=== PATIENT | female | born 1990 | race Caucasian/White ===

== ENCOUNTER 2017-01-03 17:52 | Inpatient (IN) | payer OTHER ==
--- NOTE | ~2017-01-03 | FU ---
[facility] Therapy DATE: 02/04/17 Patient: JESSE OLIVO Physician: MORCAR Address: [address] [place] [address] ROAD Room/Bed: [address] [place] [address], Zip: [place] [address] Admit Date: 01/03/17 Date of : [birth year] Height: 5 1 Weight: 122 55.4 NUTRITION MONITORING/FOLLOW-UP: Reason: PT SEEN FOR FOLLOW-UP DX: (L) BUTTOCK ABSCESS, SEPSIS Anthropometrics: 5'1", WT: 122# (55 KG), BMI: 23.0 -WEIGHTS HAVE RANGED 118-138# SINCE ADMIT Labs: WNL Meds: ZOFRAN, KCL, OS-ANAT 500+D I&O's: 2980/902 Skin: PREVIOUSLY NOTED Assessment: CHART REVIEWED AND EVENTS NOTED. PT SEEN FOR FOLLOW-UP. PT SLEEPY/LETHARGIC AT TIME OF VISIT REPORTING GOOD PO INTAKE AND APPETITE, NO C/O N/V/D. PT ADDS THAT SHE LIKES THE MAGIC CUP DAILY AT DINNER. PT REPORTED NO DIET QUESTIONS AT THIS TIME. RD TO REMAIN AVAILABLE. Dx: ADEQUATE ORAL INTAKE R/T GOOD APPETITE AND PO INTAKE AEB PT REPORT ABOVE-ACTIVE. Intervention: 1. REGULAR DIET 2. VANILLA MAGIC CUP W/DINNER MEAL Monitoring, Evaluation and Goals: 1. ORAL INTAKE; CONSUME >80% MEALS AND SUPPLEMENTS-MET 2. SKIN; PROMOTE SKIN HEALING-IN PROGRESS NEW GOAL: 1. WEIGHT; PROMOTE WEIGHT MAINTENANCE MONITOR: -PO INTAKE/APPETITE -SUPPLEMENT INTAKE -WEIGHTS Recommendations: 1. NONE AT THIS TIME RD WILL F/U PER PROTOCOL. PT AT NO NUTRITION RISK [facility] DATE: 02/04/17 Patient: JESSE OLIVO Physician: JOAQUIN Address: [address] [place] [address] ROAD Room/Bed: [address] [place] [address], Zip: [place] [address] Admit Date: 01/03/17 Date of : [birth year] Height: 5 1 Weight: 122 55.4 Respectfully, SUKHDEV DYER MS, RD, LD [facility] cc: client file
--- NOTE | ~2017-01-03 | CO ---
Unit #: [id number] #: [id number] Patient: JESSE OLIVO [id number] [address] [place], [place] [address] [id number] I MR#: [id number] NAME: JESSE OLIVO ROOM: [facility] Age: 26 Sex: F Admission Date: 01/03/2017 : 1990 Attending Physician: Cinthia Christensen M.D. Primary Care Physician: No Primary Care Physician CONSULTATION REPORT REASON FOR CONSULTATION Renal failure, hyponatremia. HISTORY OF PRESENT ILLNESS A 26-year-old female with significant past medical history of hepatitis C, hepatitis B, polysubstance drug abuse, also has history of IV heroin abuse and methamphetamine. She mainly came to the ER complaining of high fever, not feeling well, found to have an abscess in her buttock area that was also in her pelvic area too. Patient also found to have significantly high white cell count of 37,000 and hemoglobin of 10.9. The patient was started on normal saline. No repeat labs done since then. The patient is still extremely confused, not doing good and unable to get any detailed history from the patient. 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 HOME MEDICATIONS Patient not taking any home medication. SOCIAL HISTORY The patient is a smoker, takes drugs. FAMILY HISTORY Noncontributory. REVIEW OF SYSTEMS Noncontributory. PHYSICAL EXAMINATION GENERAL APPEARANCE: The patient is a middle-aged female not in any acute distress. VITAL SIGNS: Last blood pressure is 117/61. Pulse 106. Temperature 97.4. HEAD AND NECK: Pupils are reactive to light. Extraocular movements intact. Mucous membrane is moist. Neck is supple. CHEST: Patient has bilateral air entry with no wheeze, no crackle. HEART: Regular rate and rhythm. There may be a mild murmur. ABDOMEN: Distended with some tenderness on deep palpation. EXTREMITIES: No clubbing, cyanosis and edema. SKIN: Multiple needle ashford for the skin and also has multiple abrasions on the face and other parts of the body. Unit #: [id number] #: [id number] Patient: JESSE OLIVO DIAGNOSTIC STUDIES LABORATORY: BNP level 119. White cell count 37,000, hemoglobin 10, hematocrit 0.9, sodium 116. ASSESSMENT AND PLAN 1. Hyponatremia. Cause of hyponatremia multifactorial. At this time, likely may be having some SIADH issue because of multiple drug abuse. A 3% saline will be started. Repeat labs should be done STAT as the patient was on normal saline. Repeat labs later today. 2. Pelvic abscess. 3. Bacteremia. 4. Some proteinuria. Need to check complement level to rule out infectious (1) . 5. Multiple drug abuse. DISCUSSION At this time, patient seems to be septic with increased white cell count, pelvic abscess, hyponatremia, needs multiple labs, close observation, will be transferred to ICU and repeat labs will be done later today and STAT at this time. Follow up with a CPK level to rule out any rhabdomyolysis because of the presence of significant hematuria. Significant blood in the urine without having significant RBCs. Thank you for letting me evaluate and taking care of this patient. Dictated by... Sylvia Hardy TD: 01/06/2017 06:35 JOB #: [id number] CONSULTATION REPORT Page 1 of 1 X Lavell Conway MD X CONSULTATION REPORT
--- NOTE | ~2017-01-03 | OR ---
Unit #: [id number] #: [id number] Patient: JESSE OLIVO [id number] [address] [address] [id number] I MR#: [id number] NAME: JESSE OLIVO ROOM: 549 Date of Procedure: 01/08/2017 Admission Date: 01/03/2017 Surgeon: Nils Perez M.D. : 1990 Attending Physician: Cinthia Christensen M.D. OPERATIVE REPORT PREOPERATIVE DIAGNOSES 1. Abscess, right forearm. 2. Abscess, dorsal lateral aspect right foot. POSTOPERATIVE DIAGNOSES 1. Abscess, right forearm. 2. Abscess, dorsal lateral aspect right foot. PROCEDURE PERFORMED 1. Incision and drainage of abscess, right forearm. 2. Incision and drainage of dorsal lateral aspect right foot. ANESTHESIA General LMA anesthesia with 0.5% Marcaine plain local anesthesia. FINDINGS Each abscess was incised and drained. SPECIMENS None. COMPLICATIONS None apparent. CONDITION The patient tolerated the procedure well. INDICATIONS FOR PROCEDURE The patient is a 26-year-old female, who presents at this time with multiple abscesses. She now has an area of erythema and induration of the extensor surface of right forearm as well as the dorsal lateral aspect of right foot. Ultrasound was performed, which revealed area suspicious for an abscess in each location. She presents at this time for incision and drainage. DESCRIPTION OF PROCEDURE After obtaining informed consent as well as receiving scheduled antibiotics, the patient was brought to the operating room and after adequate general LMA anesthesia was obtained, had a right forearm and right foot prepped and draped in a sterile fashion. An incision was made over the erythematous indurated area of the right forearm and the large Unit #: [id number] #: [id number] Patient: JESSE OLIVO abscess cavity was entered. All loculations were broken up and the cavity was irrigated out. Hemostasis was obtained with the Bovie. The area was infiltrated with 0.5% Marcaine plain local anesthesia and packed with saline soaked fluff. A dry dressing was applied followed by a Kerlix wrap. At this point in time, attention was turned to the right foot. An incision was made over the area of erythema and induration. A small cavity was entered and evacuated. All loculations were broken up. The wound was irrigated. Hemostasis was obtained with the Bovie, infiltrated with 0.5% Marcaine plain local anesthesia and packed with saline soaked fluffs. Dry dressings were applied followed by a Kerlix wrap. Needle counts, sponge counts, and instrument counts were all correct as reported by the scrub nurse x2. The patient went from the operative room to recovery room in stable condition. Dictated by... Sylvia Whiteside/марина TD: 01/09/2017 02:43 JOB #: [id number] CC: Bruce Guerrero M.D. [facility] OPERATIVE REPORT Page 1 of 1 X Nils Perez MD X PROCEDURE OPERATIVE NOTE
--- NOTE | ~2017-01-03 | CO ---
Unit #: [id number] #: [id number] Patient: JESSE OLIVO [id number] [address] [address] [id number] I MR#: [id number] NAME: JESSE OLIVO ROOM: 549 Age: 26 Sex: F Admission Date: 01/03/2017 : 1990 Attending Physician: Kevin Barrera M.D. Primary Care Physician: Primary Care Physician No Consultation Date: 01/14/2017 CONSULTATION REPORT CHIEF COMPLAINT Right shoulder pain. HISTORY OF PRESENT ILLNESS Jesse is a 26-year-old female with a history of injection IV drug use and MRSA endocarditis. She now has multiple areas of septic emboli including multiple subcutaneous abscesses and an even empyema. She now has shoulder pain and an MRI consistent with possible septic bursitis. She is complaining of pain in her right shoulder which has been present throughout her hospitalization despite treatment with IV antibiotics. She states it is painful with any attempted range of motion or lifting of the arm off the bed. She described the area is feeling tight. There is slight overlying erythema. PAST MEDICAL HISTORY 1. Polysubstance abuse including heroin, marijuana, and methamphetamine. 2. Hepatitis C. 3. Hepatitis B. 4. HPV. PAST SURGICAL HISTORY I and D of left antecubital fossa abscess. MEDICATIONS No home medications. ALLERGIES No known drug allergies. SOCIAL HISTORY The patient smokes one pack of cigarettes daily. She denies any alcohol use. She injects IV drugs including heroin daily. FAMILY HISTORY Noncontributory to the current illness. REVIEW OF SYSTEMS Negative except as noted in the HPI. PHYSICAL EXAMINATION GENERAL APPEARANCE: Appears older than stated age, but in no acute distress. PSYCHIATRIC: Awake, alert, and oriented appropriately. Unit #: [id number] #: [id number] Patient: JESSE OLIVO CARDIAC: Regular rate and rhythm. PULMONARY: No increased work of breathing. Symmetric chest rise. ABDOMEN: Soft. Nondistended. NEUROLOGIC: Intact axillary, musculocutaneous, median, ulnar, radial nerve function. SKIN: There were multiple areas of open wounds following debridement. She has one overlying in the right forearm. The right shoulder demonstrates mild erythema. There is some soft tissue swelling present. MUSCULOSKELETAL: She is tender over the subacromial bursa. She has forward elevation and abduction of approximately 70 degrees. She has pain with passive range of motion of the shoulder. DIAGNOSTIC STUDIES IMAGING STUDIES: MRI is reviewed of the right shoulder. There was an area of inflammation in the subacromial bursa. There is edema and stranding in the cuff musculature. Overall findings are concerning for septic bursitis. IMPRESSION Right shoulder septic bursitis. PLAN Her MRI is somewhat inconclusive. However, combined with her history and clinical exam, overall this is concerning for septic bursitis of the right subacromial space. Given her widespread septic emboli, an arthroscopic debridement is indicated. We also plan for aspiration of the glenohumeral joint as well to ensure that there was no evidence of any septic arthritis of the joint space itself. I suspect this will be negative. We discussed the nature of the surgery including risks, benefits, alternatives, and she elected to proceed. Dictated by... Gino Finley M.D. CANDY/марина TD: 01/18/2017 04:05 JOB #: [id number] CONSULTATION REPORT Page 1 of 1 X Gino Finley MD CONSULTATION REPORT
--- NOTE | ~2017-01-03 | CO ---
Unit #: [id number] #: [id number] Patient: JESSE OLIVO [id number] [facility] [address] [facility]. [place], [place] [address] [id number] I MR#: [id number] NAME: JESSE OLIVO ROOM: 549 Age: 26 Sex: F Admission Date: 01/03/2017 : 1990 Attending Physician: Cinthia Christensen M.D. Primary Care Physician: Primary Care Physician No Consultation Date: 01/07/2017 CONSULTATION REPORT REASON FOR CONSULTATION Followup. DISCUSSION Ms. Jesse Olivo is a 26-year-old female, seen in room 549, bed 1 on 01/07/2017 at [facility]. The patient transferred out of ICU, pleasant, cooperative. The patient's family member was at the bedside. The patient reported having a lot of problem with the anxiety, nervousness, unable to sleep last night. Current medications are not working. The patient denied any suicidal or homicidal ideation. Denied any psychotic symptom. Vital signs; temperature 97.9, pulse 118, respiratory rate 18, blood pressure 124/85, and oxygen saturation 98%. REVIEW OF SYSTEMS Complete review of systems unremarkable except as mentioned above. MENTAL STATUS EXAMINATION Vital signs, please see above. General appearance; the patient dressed in hospital attire. Attention span and concentration, fair. Speech, rapid in rate. Oriented in place and person. Mood and affect, labile. Thought process, circumstantial. Thought content, the patient denied any thoughts of harming self or others, but guarded. Recent and remote memory, fair. Language, intact. Fund of knowledge, fair to slightly impaired. Insight and judgment, fair to slightly impaired. DIAGNOSES Psychiatric: Opioid use disorder, severe, F11.20; major depressive disorder, recurrent, severe, F33.2. ASSESSMENT/PLAN 1. Supportive psychotherapy and psychoeducation provided to the patient. 2. Educated about benefits and side effects of medication and course and prognosis of illness. 3. Recommending at this time to increase trazodone to 100 mg at bedtime, increase Zyprexa to 10 mg at bedtime, Vistaril to 50 mg t.i.d. Continue with the other medications same. We will closely monitor. Advised to hold medication if the patient is too sedated. We will continue to follow. Follow please feel free to call if any question, telephone #[phone]. Dictated by... Fam Medina M.D. Unit #: [id number] #: [id number] Patient: JESSE OLIVO MICAH/modl TD: 01/07/2017 22:44 JOB #: [id number] CONSULTATION REPORT Page 1 of 1 X Fam Medina MD X CONSULTATION REPORT
--- NOTE | ~2017-01-03 | CO ---
Unit #: [id number] #: [id number] Patient: JESSE OLIVO [id number] [address] [place], [place] [address] [id number] I MR#: [id number] NAME: JESSE OLIVO ROOM: 325 Age: 26 Sex: F Admission Date: 01/03/2017 : 1990 Attending Physician: Kevin Barrera M.D. Primary Care Physician: No Primary Care Physician Consultation Date: 01/04/2017 CONSULTATION REPORT REASON FOR CONSULTATION Buttock abscess. HISTORY OF PRESENT ILLNESS This is a 26-year-old female who has a history of polysubstance abuse who last used IV drugs a few days prior to admission. The patient reports that for the last several days she has had some wounds on her buttocks as well as her face and other area of her body. 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 She was in the hospital a few years ago for an antecubital fossa abscess. The patient now is admitted with fever, leukocytosis and was found to have a buttock abscess. The patient is admitted and is awaiting surgical evaluation as well. The patient has been placed on vancomycin and Zosyn. ID was asked to evaluate for further management. PAST MEDICAL HISTORY 1. Polysubstance abuse. 2. 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 3. Abscess I and D in the past. ALLERGIES No known allergies. MEDICATIONS The patient is currently on vancomycin x1 and Zosyn. For other medications, please refer to patient's MAR. SOCIAL HISTORY The patient has positive tobacco. She denies any alcohol. She does report heroin abuse. REVIEW OF SYSTEMS The patient does report some sweats and chills. She denies any shortness of breath, UTI signs or symptoms, nausea, vomiting, diarrhea. She reports multiple scabbed lesions all over her face. She also reports pain in her right foot with difficulty with ambulation. PHYSICAL EXAMINATION VITAL SIGNS: Temperature is 97s.4 with a T-max of 101.1, pulse is 106, blood pressure 117/61, respiratory rate 18. GENERAL: This is a no apparent distress female who is currently resting in the bed comfortably. However, she is lethargic and you have to awake her multiple times to have the patient complete a sentence. HEENT/NECK: Her pupils are equal. Her neck is supple. Unit #: [id number] #: [id number] Patient: JESSE OLIVO CARDIOVASCULAR: S1, S2. Regular rate and rhythm. PULMONARY: Clear to auscultation bilaterally with no wheezes or rhonchi noted. ABDOMEN: Positive bowel sounds. Soft and nontender. EXTREMITIES: Multiple scabbed lesions noted throughout her legs, her face and she also has some confluent erythema on her right foot with swelling. She has a buttock wound that is in a dressing that does show some cellulitis and slough. DIAGNOSTIC STUDIES LABORATORY: BUN 17, creatinine 0.9, sodium 116, potassium 4.1, chloride 82, CO2 23, bilirubin 1.6, AST 114, ALT 38, lactic acid 1.4. White blood cell count 37.5, hemoglobin 10.9, hematocrit 32.3, platelets 330. HIV in 2016 was negative. Tox screen shows positive amphetamines and opiates. Urinalysis shows WBC 25-50, positive nitrites, 1+ bacteria. Urine culture and blood cultures is pending. IMAGING: CT scan of the pelvis with contrast - please see full report for complete details. Consistent with abscess medial to the acetabulum and inferior pubic ramus down to the deep pelvis. Another similar fluid collection in the pelvis itself which is possible ovarian cyst or additional abscess. Chest x-ray - left lung is clear. Right atelectasis. Moderate size pleural effusion. IMPRESSION This is a 26-year-old female with polysubstance abuse that was admitted for buttock abscess. The patient does have a buttock abscess and surgery is to evaluate. A CT scan is also abnormal. The patient has fever and leukocytosis and may have additional issues including bacteremia and endocarditis is always a concern. 2D echo is currently pending. The patient also has right foot cellulitis and will need to evaluate patient for any septic arthritis or deep foot infection. Will continue vancomycin and Zosyn at this time. Will follow up blood culture results. Will ask the nursing staff to call if any positive blood cultures and give the patient a Hibiclens bath. Will also give Bacitracin to the open wounds on both her face and her scabbed lesions. The patient does not appear septic or toxic at this time but she is fairly lethargic most likely from recent IV drug abuse prior to admission. We will need to follow along with patient closely. Thank you for allowing us to participate in the care of this patient. Further recommendations to follow pending patient's clinical course. Dictated by... Adalgisa WillsPKhalidaRAbran for Sylvia Ellis/true Unit #: [id number] #: [id number] Patient: JESSE OLIVO TD: 01/04/2017 10:20 JOB #: [id number] CONSULTATION REPORT Page 1 of 1 X X CONSULTATION REPORT
--- NOTE | ~2017-01-03 | CO ---
Unit #: [id number] #: [id number] Patient: JESSE OLIVO [id number] [address] [address] [id number] I MR#: [id number] NAME: JESSE OLIVO ROOM: [facility] Age: 26 Sex: F Admission Date: 01/03/2017 : 1990 Attending Physician: Cinthia Christensen M.D. Primary Care Physician: Primary Care Physician No Consultation Date: 01/04/2017 CONSULTATION REPORT HISTORY OF PRESENT ILLNESS Ms. Olivo is a 26-year-old female with a history of polysubstance abuse who presents with a painful abscess in the left buttock. There has been some spontaneous drainage but there is a significant amount of necrotic and infected soft tissue with associated cellulitis. She also has multiple wounds all over her body from infection and scratching. She has the typical appearance of a meth addict. She will need surgical debridement of this left buttock abscess. Most of the other wounds do not need any surgical intervention as they are superficial and not associated with fluctuance. PAST MEDICAL HISTORY 1. I and D of previous left antecubital fossa abscess. 2. History of methamphetamine and heroin abuse. 3. 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 4. Hepatitis C and B. HOME MEDICATIONS No home medications. ALLERGIES None. SOCIAL HISTORY She has a long history of substance abuse. 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 FAMILY HISTORY She is unaware of any chronic or inheritable diseases. REVIEW OF SYSTEMS Noncontributory. PHYSICAL EXAMINATION VITAL SIGNS: Temperature 97.4, pulse 106, respirations 18, blood pressure 117/61. GENERAL: She is awake, alert, oriented. She is cooperative. SKIN: She has scars and open superficial wounds all over her face and lips, chest, abdominal wall, upper and lower extremities. There are none on her back. LEFT BUTTOCK: She has about a 3 x 2 cm open area with necrosis and some purulent discharge. There is associated cellulitis. NEUROLOGIC: She is grossly intact. Unit #: [id number] #: [id number] Patient: JESSE OLIVO DIAGNOSTIC STUDIES LABORATORY: BUN 17, creatinine 0.9, sodium 116, potassium 4.1, chloride 82, calcium 7.7, CO2 is 23, albumin 2.2, total bilirubin 1.6. Lactic acid 1.4. White count 37,500 with 90% neutrophils, hemoglobin 10.9, platelets 330,000. Hepatitis C antibody reactive. Tox screen is positive for amphetamines and opiates. Urinalysis nitrite positive, urinary tract infection. IMAGING: CT scan of the pelvis confirms the abscess. There is a thin-walled fluid collection in the pelvis, probably an ovarian cyst. Chest x-ray no acute findings. CARDIOVASCULAR: Echocardiogram is pending. ASSESSMENT AND PLAN This is a 26-year-old female with long history of methamphetamine and heroin abuse who presents with a large abscess with soft tissue necrosis of the left buttock. PLAN 1. She will need incision and drainage and surgical debridement. 2. She also has multiple other superficial wounds all over her body too numerous to count. 3. She has been seen by Infectious Disease and started on appropriate antibiotics. 4. 2D echo is pending to rule out endocarditis. 5. She is on Zosyn and vancomycin. 6. She also has urinary tract infection, culture pending. 7. Psychiatry has been consulted to see the patient. Dictated by... Mark Celaya M.D. JUSTO/cindi TD: 01/05/2017 22:06 JOB #: [id number] CONSULTATION REPORT Page 1 of 1 X Mark Celaya MD CONSULTATION REPORT
--- NOTE | ~2017-01-03 | CR72 ---
[facility] A Service of [facility] RADIOLOGY TEXT RESULTS PATIENT: JESSE OLIVO LOCATION: [facility] [id number] : [birth year] UNIT #: [id number] AGE: [address]: Kevin Barrera MD SEX: F ORDER DR: [id number] [facility] [address] [place], [place] [address] [id number] I MR#: [id number] Acc #: [id number] NAME: JESSE OLIVO : 1990 SEX: F STUDY DATE/TIME: 01/03/2017 19:16 UNIT: [facility] ROOM: [id number] STUDY DESCRIPTION: CR Chest Single View Portable Attending Physician: Kevin Barrera M.D. Ordering Physician: Niharika Cuello M.D. MEDICAL IMAGING REPORT This report is preliminary unless electronic signature is present EXAM Portable chest HISTORY Fever, chest and shortness of air for 4 days. FINDINGS Moderate-sized right pleural effusion with moderate right basilar probable atelectasis. Left lung is clear. Cardiac and mediastinal contours are normal. Remainder of lungs are clear. Dictated by... Tomas Hwang M.D. THIS IS AN ELECTRONICALLY VERIFIED REPORT Tomas Hwang M.D. at 01/03/2017 11:13 PM DFL/pcl TD: 01/03/2017 22:59 JOB #: [id number] MEDICAL IMAGING REPORT Page 1 of 1 COPY
--- NOTE | ~2017-01-03 | FU ---
[facility] Nutrition Therapy DATE: 01/23/17 Patient: JESSE OLIVO Physician: JOAQUIN Address: [address] [place] [address] ROAD Room/Bed: [address] [place] [address], Zip: [place] [address] Admit Date: 01/03/17 Date of : [birth year] Height: 5 1 Weight: 122 55.6 NUTRITION MONITORING/FOLLOW-UP: Reason: PT SEEN FOR FOLLOW-UP DX: (L) BUTTOCK ABSCESS, SEPSIS Anthropometrics: 5'1", WT: 122# (55 KG), BMI: 23.0 -WEIGHTS HAVE RANGED 118-138# SINCE ADMIT Labs: GLU: 141, ALB: 1.6 (ADMIT) Meds: ZOFRAN, 0S-ANAT 500+D, KCL I&O's: 1570/8, 1 BM NOTED Skin: (R) FOREARM ABSCESS, OTHER SKIN CONDITIONS NOTED PREVIOUSLY EDEMA: (R) SHOULDER TRACE EDEMA; BILATERAL FEET TRACE EDEMA; (R) ARM GENERAL EDEMA Assessment: CHART REVIEWED AND EVENTS NOTED. PT SEEN FOR FOLLOW-UP. PT EATING LUNCH AT TIME OF VISIT. PT REPORTS GOOD PO INTAKE AND APPETITE, NO C/O N/V/D. PT REPORTS CONSUMING MAGIC CUP DAILY W/DINNER. PT REPORTED NO DIET QUESTIONS AT THIS VISIT. RD TO REMAIN AVAILABLE. Dx: ADEQUATE ORAL INTAKE R/T GOOD APPETITE AND PO INTAKE AEB PT REPORT ABOVE.-ACTIVE Intervention: 1. REGULAR DIET 2. VANILLA MAGIC CUP W/DINNER Monitoring, Evaluation and Goals: 1. ORAL INTAKE; CONSUME/TOLERATE >50% OF MEALS AND SUPPLEMENTS-MET 2. SKIN; PREVENT SKIN BREAKDOWN; PROMOTE HEALING-IN PROGRESS MONITOR: -PO INTAKE/APPETITE -WEIGHTS -SUPPLEMENT INTAKE Recommendations: 1. ENCOURAGE PO INTAKE 2. CONSIDER ADDING MVI W/MINERAL DAILY TO PROMOTE SKIN HEALING RD WILL F/U PER PROTOCOL PT IS MILDLY COMPROMISED [facility] Nutrition Therapy DATE: 01/23/17 Patient: JESSE GEOVANI Physician: JOAQUIN Address: [address] [place] [address] ROAD Room/Bed: [address] [place] [address], Zip: [place] [address] Admit Date: 01/03/17 Date of : [birth year] Height: 5 1 Weight: 122 55.6 Respectfully, SUKHDEV DYER MS, RD, LD Food and Nutritional Services [facility] cc: client file
--- NOTE | ~2017-01-03 | US49 ---
[facility] A Service of [facility] & [facility] RADIOLOGY TEXT RESULTS PATIENT: JESSE OLIVO LOCATION: C5B 549-01 : [birth year] UNIT #: [id number] AGE: [address]: Cinthia Christensen MD SEX: F ORDER DR: [id number] [facility] [address] [facility] [place], [place] [address] [id number] I MR#: [id number] Acc #: [id number] NAME: JESSE OLIVO : 1990 SEX: F STUDY DATE/TIME: 01/08/2017 8:39 UNIT: [facility] ROOM: [facility] STUDY DESCRIPTION: US Extremity Non Vasc Complete Attending Physician: Cinthia Christensen M.D. Ordering Physician: Nils Perez M.D. Primary Care Physician: No Primary Care Physician MEDICAL IMAGING REPORT This report is preliminary unless electronic signature is present EXAM Ultrasound extremity, nonvascular, complete, 01/08/2017. HISTORY Left foot pain and swelling right AC fossa and right lateral forearm 5 days. Evaluate for abscess. TECHNIQUE Real-time ultrasonography of the right antecubital fossa and right forearm performed. FINDINGS The vascular structures of the right antecubital fossa are unremarkable. No abnormal fluid collection in the right antecubital fossa. Along the radial aspect of the forearm in area of palpable abnormality indicated by patient, there is a heterogeneous collection measuring 7.01 cm x 3.43 cm x 1.28 cm. It contains some areas of cystic or fluid appearance. There are areas of heterogeneous echogenic material. Color Doppler interrogation shows no indication of internal vascular flow. The appearance is nonspecific. In the appropriate clinical context, evolving abscess could be considered. Evolving hematoma could be considered. This structure may be amenable to image-guided fine-needle aspiration sampling if it would assist in management. IMPRESSION 1. No abnormality is seen in the antecubital fossa region. 2. Along the radial aspect of the right forearm in area of palpable abnormality indicated by patient, there is a heterogeneous collection. It measures 7 cm in length by 3.4 cm x 1.2 cm transversely. It does contain some cystic or fluid appearing components. It is largely of heterogeneous echogenic appearance. The appearance is nonspecific. In the appropriate clinical context, evolving abscess or hematoma could be considered. If it would assist STS. [facility] A Service of [facility] RADIOLOGY TEXT RESULTS PATIENT: JESSE OLIVO LOCATION: C5B 549-01 : [birth year] UNIT #: [id number] AGE: [address]: Cinthia Christensen MD SEX: F ORDER DR: in management, this area might be amenable to fine needle aspiration sampling. Dictated by... Omar Matos M.D. THIS IS AN ELECTRONICALLY VERIFIED REPORT Omar Matos M.D. at 01/09/2017 6:12 PM PATRICK/cait TD: 01/08/2017 09:51 JOB #: [id number] MEDICAL IMAGING REPORT Page 1 of 1 COPY
--- NOTE | ~2017-01-03 | CR72 ---
[facility] A Service of [facility] & [facility] RADIOLOGY TEXT RESULTS PATIENT: JESSE OLIVO LOCATION: [address] : [birth year] UNIT #: [id number] AGE: [address]: Cinthia Christensen MD SEX: F ORDER DR: [id number] [facility] [address] [facility]. [place], [place] [address] [id number] I MR#: [id number] Acc #: [id number] NAME: JESSE OLIVO : 1990 SEX: F STUDY DATE/TIME: 01/05/2017 4:31 UNIT: [facility] ROOM: [facility] STUDY DESCRIPTION: CR Chest Single View Portable Attending Physician: Cinthia Christensen M.D. Ordering Physician: Avani Manning M.D. Primary Care Physician: No Primary Care Physician MEDICAL IMAGING REPORT This report is preliminary unless electronic signature is present EXAM Single view portable chest, 01/05/17 HISTORY Follow up right chest tube. FINDINGS This portable view of the chest shows the right chest tube is in good position. There is no pneumothorax. There is minimal right lower lobe atelectasis. The left lung is clear. The central venous catheter has its tip in the right atrium. Dictated by... Sergio Juarez M.D. THIS IS AN ELECTRONICALLY VERIFIED REPORT Sergio Juarez M.D. at 01/05/2017 1:53 PM ANDRE/marielle TD: 01/05/2017 12:21 JOB #: [id number] MEDICAL IMAGING REPORT Page 1 of 1 COPY
--- NOTE | ~2017-01-03 | CO ---
Unit #: [id number] #: [id number] Patient: JESSE OLIVO [id number] [facility] [address] [place], [place] [address] [id number] I MR#: [id number] NAME: JESSE OLIVO ROOM: 549 Age: 26 Sex: F Admission Date: 01/03/2017 : 1990 Attending Physician: Cinthia Christensen M.D. Consultation Date: 01/08/2017 CONSULTATION REPORT DISCUSSION Ms. Jesse Olivo is a 26-year-old female, seen in room 549, bed 1 on 01/08/2017 at [facility]. The patient was lying comfortably in bed; reported still having problem with the anxiety, mood lability, sad, depressed, anxious, but denied any suicidal or homicidal ideation. Denied any psychotic symptom. The patient is compliant with medication. Vital signs; temperature 98.1, pulse 113, blood pressure 133/92, and oxygen saturation 98%. The patient was somewhat upset about decreasing the dosage of her Neurontin. The patient was explained and answered all her questions. The patient is currently taking Desyrel 100 mg at bedtime, Zyprexa 10 mg at bedtime, Vistaril 50 mg t.i.d., Requip 1 mg b.i.d., Neurontin 200 mg t.i.d. The patient has p.r.n. Neurontin also available. REVIEW OF SYSTEMS Complete review of systems unremarkable. MENTAL STATUS EXAMINATION General appearance; the patient dressed casually, lying comfortably in bed. Attention span and concentration, fair. Speech, regular rate and coherent. Oriented in time, place, and person. Mood and affect, labile. Thought process, coherent. Thought content, the patient denied any thoughts of harming self or others, but guarded. Recent and remote memory, fair. Language, intact. Fund of knowledge, fair to slightly impaired. DIAGNOSES 1. Opioid use disorder, severe, F11.20. 2. Major depressive disorder, recurrent, severe, F33.2. 3. Anxiety disorder, not otherwise specified, F40.01. ASSESSMENT/PLAN 1. Supportive psychotherapy and psychoeducation provided to the patient. 2. Educated about benefits and side effects of medication and course and prognosis of illness. 3. Advised to continue with current medication protocol. If needed, consider further adjustment of medication. We will continue to follow and make further adjustment of medication if needed. Dictated by... Sylvia Gilmore/марина Unit #: [id number] #: [id number] Patient: JESSE OLIVO TD: 01/08/2017 23:55 JOB #: [id number] CONSULTATION REPORT Page 1 of 1 X Fam Medina MD CONSULTATION REPORT
--- NOTE | ~2017-01-03 | CT93 ---
[facility] A Service of [facility] & [facility] RADIOLOGY TEXT RESULTS PATIENT: JESSE OLIVO LOCATION: [facility] 549-01 : [birth year] UNIT #: [id number] AGE: [address]: Cinthia Christensen MD SEX: F ORDER DR: [id number] [facility] [address]. [place], [place] [address] [id number] I MR#: [id number] Acc #: [id number] NAME: JESSE OLIVO : 1990 SEX: F STUDY DATE/TIME: 01/04/2017 18:53 UNIT: [facility] ROOM: [facility] STUDY DESCRIPTION: CT Lower Ext Rt W Cont Attending Physician: Cinthia Christensen M.D. Ordering Physician: Isidro Celaya M.D. Primary Care Physician: Primary Care Physician No MEDICAL IMAGING REPORT This report is preliminary unless electronic signature is present EXAM CT right lower extremity with contrast HISTORY 26-year-old female polysubstance abuse and buttock abscess. Right ankle redness and swelling. Redness and swelling over the lateral malleolus. FINDINGS Thin section axial images performed through the right lower extremity from lower leg through the ankle and foot. IV contrast administered. This CT examination was performed with one or more of the following radiation dose reduction techniques: automatic exposure control, adjustment of mA and/or kV according to patient size, and iterative reconstruction. Bone structure and alignment appears normal. No osteolysis or focal periostitis. No fracture. Normal alignment. Mild soft tissue swelling over the lateral ankle could reflect early cellulitis but no deep compartment infection identified. No drainable fluid collection or abscess. No evidence of septic arthritis. The visualized ankle tendons and ligaments unremarkable. IMPRESSION Minimal soft tissue swelling over the lateral malleolus could reflect early cellulitis, but clearly no drainable fluid collection or abscess and no deep compartment involvement or osteomyelitis. Dictated by... John Figueroa M.D. THIS IS AN ELECTRONICALLY VERIFIED REPORT John Figueroa M.D. at 01/06/2017 3:54 PM OSIRISS/kadi [facility] A Service of [facility] & [facility] RADIOLOGY TEXT RESULTS PATIENT: JESSE OLIVO LOCATION: [facility] 549-01 : [birth year] UNIT #: [id number] AGE: [address]: Cinthia Christensen MD SEX: F ORDER DR: TD: 01/06/2017 10:16 JOB #: [id number] MEDICAL IMAGING REPORT Page 1 of 1 COPY
--- NOTE | ~2017-01-03 | CR72 ---
[facility] A Service [facility] RADIOLOGY TEXT RESULTS PATIENT: JESSE OLIVO LOCATION: [facility] 549 : [birth year] UNIT #: [id number] AGE: [address]: Kevin Barrera MD SEX: F ORDER DR: [id number] [place] [id number] [facility]. [place], [place] [address] [id number] I MR#: [id number] Acc #: [id number] NAME: JESSE OLIVO : 1990 SEX: F STUDY DATE/TIME: 01/10/2017 5:32 UNIT: [facility] ROOM: [facility] STUDY DESCRIPTION: CR Chest Single View Portable Attending Physician: Cinthia Christensen M.D. Ordering Physician: Milan Galvez M.D. Primary Care Physician: Primary Care Physician No MEDICAL IMAGING REPORT This report is preliminary unless electronic signature is present EXAM Portable chest 01/10/2017 COMPARISON 01/06/2017. HISTORY Right chest tube placement, shortness of breath. FINDINGS An AP view is obtained. Heart size is normal. Left lung is clear. Right-sided pleural drain remains in place. No pneumothorax is identified. There is a decrease in subcutaneous air and some volume loss at the right base. Left side IJ line terminates in the cavoatrial junction. CONCLUSION Slight decrease in subcutaneous emphysema, otherwise no change. No pneumothorax. Dictated by... Omar Delgado M.D. THIS IS AN ELECTRONICALLY VERIFIED REPORT Omar Delgado M.D. at 01/13/2017 5:11 PM WILI/kadi TD: 01/10/2017 06:56 JOB #: [id number] MEDICAL IMAGING REPORT [facility] A Service [facility] RADIOLOGY TEXT RESULTS PATIENT: JESSE OLIVO LOCATION: [facility] : [birth year] UNIT #: [id number] AGE: [address]: Kevin Barrera MD SEX: F ORDER DR: Page 1 of 1 COPY
--- NOTE | ~2017-01-03 | CT105 ---
[facility] A Service of [facility] & [facility] RADIOLOGY TEXT RESULTS PATIENT: JESSE OLIVO LOCATION: [facility] 325-01 : [birth year] UNIT #: [id number] AGE: [address]: Kevin Barrera MD SEX: F ORDER DR: [id number] [facility] [address] [place], [place] [address] [id number] I MR#: [id number] Acc #: [id number] NAME: JESSE OLIVO : 1990 SEX: F STUDY DATE/TIME: 01/03/2017 22:48 UNIT: C3A PCU ROOM: 325 STUDY DESCRIPTION: CT Pelvis W Cont Attending Physician: Kevin Barrera M.D. Ordering Physician: Niharika Cuello M.D. Primary Care Physician: No Primary Care Physician MEDICAL IMAGING REPORT This report is preliminary unless electronic signature is present EXAM CT pelvis without contrast HISTORY Abscess in left buttock region with pain for 3 days. TECHNIQUE Patient was given 100 mL of Isovue 370 and axial 5 mm images were obtained through the pelvis. Sagittal and coronal reconstructions were generated. This CT exam was performed with one or more of the following radiation dose reduction techniques: automatic control, adjustment of mA and/or kV according to patient size, and iterative reconstruction. FINDINGS The visualized bowel is normal. The uterus and adnexal regions are normal. There is a fluid multiloculated fluid collection in the left side of the pelvis consistent with an abscess. Just medial to the sigmoid colon and posterior to the iliac artery and vein is a thin walled fluid collection measuring about 2.6 x 2.0 cm. This could conceivably be an ovarian cyst. Then there is a fluid collection in or directly adjacent to the muscle medial to the acetabulum that is about 3.6 x 2.2 x 6.7 cm running from top to bottom and it also involves the muscle extending between the pubic symphysis and the ischial tuberosity and the portion in that muscle is about 4.3 x 1.6 x 3.2 cm. It is difficult to see these abnormalities extending to the skin surface but there is some skin thickening in the medial buttocks region. IMPRESSION This patient has a complex abnormality consistent with an abscess with fluid visible in the muscular tissue medial to the acetabulum as well as medial to the inferior pubic ramus. This appears to be a multilocular abscess running down the lateral side of the deep pelvis. It does not STS. [facility] A Service of [facility] RADIOLOGY TEXT RESULTS PATIENT: JESSE OLIVO LOCATION: C3A 325-01 : [birth year] UNIT #: [id number] AGE: [address]: Kevin Barrera MD SEX: F ORDER DR: clearly communicate with the rectum or with the area of skin thickening seen in the medial left buttocks region. The abnormality is at least 6 to 7 cm from superior to inferior and 3.6 cm from front to back. There is also a thin walled fluid collection in the pelvis itself medial to the iliac artery and vein. This could possibly represent an ovarian cyst or an additional side of abscess formation. It is difficult to identify the ovary on this side. Dictated by... Sergio Juarez M.D. THIS IS AN ELECTRONICALLY VERIFIED REPORT Sergio Juarez M.D. at 01/04/2017 5:54 AM ANDRE/macy TD: 01/04/2017 05:27 JOB #: [id number] MEDICAL IMAGING REPORT Page 1 of 1 COPY
--- NOTE | ~2017-01-03 | XA166 ---
[facility] A Service of [facility] RADIOLOGY TEXT RESULTS PATIENT: JESSE OLIVO LOCATION: C5B 549-01 : [birth year] UNIT #: [id number] AGE: [address]: Kevin Barrera MD SEX: F ORDER DR: [id number] [facility] [address] [place], [place] [address] [id number] I MR#: [id number] Acc #: [id number] NAME: JESSE OLIVO : 1990 SEX: F STUDY DATE/TIME: 01/20/2017 15:19 UNIT: C5 ROOM: [facility] STUDY DESCRIPTION: XA PICC Line Placement WO Port Attending Physician: Kevin Barrera M.D. Ordering Physician: Milan Galvez M.D. Primary Care Physician: Primary Care Physician No MEDICAL IMAGING REPORT This report is preliminary unless electronic signature is present EXAM PICC line placed ultrasound fluoroscopy HISTORY Long-term antibiotic access required. PRE-PROCEDURE The procedure was explained to the patient and/or patient traveling sales representative including risks, benefits, potential complications and potential for alternative forms of treatment. Informed consent was obtained, and prior to initiating the procedure a formal timeout procedure was performed. PROCEDURE Using full standard sterile barrier technique, including caps, gowns, gloves, masks, as well as sterile skin preparation and standard sterile draping, the left basilic vein tip in the SVC. Left arm was prepped and draped in the usual fashion, and real-time sterile ultrasound guidance was used to localize an arm vein and to confirm vessel patency. A hard copy ultrasound image was recorded. After local anesthesia with 1% Xylocaine, the vein was punctured using real-time sterile ultrasound guidance, and an 0.018 guidewire was advanced into the superior vena cava, using fluoroscopic guidance. A 4-Cameroonian single lumen PICC was then measured and trimmed to 43 cm deployed with the tip positioned in the superior vena cava. The position of the line was documented with a radiographic image. The line was secured in place with an adhesive dressing and an antibiotic patch was applied. Total fluoro time was 0.5 minutes. A single fluoroscopic spot image was obtained. Total exposure 1 mGy air kerma standard. IMPRESSION STS. [facility] A Service of [facility] RADIOLOGY TEXT RESULTS PATIENT: JESSE OLIVO LOCATION: C5B 549-01 : [birth year] UNIT #: [id number] AGE: [address]: Kevin Barrera MD SEX: F ORDER DR: 1. Successful placement of a 4-Cameroonian single lumen PowerPICC via the left arm under ultrasound and fluoroscopic guidance. The tip of the PICC is in good position in the superior vena cava. 2. A single fluoroscopic spot image was obtained. Dictated by... Omar Delgado M.D. THIS IS AN ELECTRONICALLY VERIFIED REPORT Omar Delgado M.D. at 01/21/2017 3:38 PM WILI/ron TD: 01/21/2017 13:56 JOB #: [id number] MEDICAL IMAGING REPORT Page 1 of 1 COPY
--- NOTE | ~2017-01-03 | DS ---
Unit #: [id number] #: [id number] Patient: JESSE OLIVO [id number] [address] [place], [place] [address] [id number] I MR#: [id number] NAME: JESSE OLIVO ROOM: 549 Age: 26 Sex: F Admission Date: 01/03/2017 : 1990 Discharge Date: Attending Physician: Kevin Barrera M.D. Primary Care Physician: No Primary Care Physician DISCHARGE SUMMARY DISCHARGE DIAGNOSES 1. MRSA sepsis, MRSA infective endocarditis, MRSA septic bursitis of the right subacromial space. 2. High-grade partial-thickness bursal site and supraspinatus tendon tear, anterior labral fraying. 3. Right forearm abscess. 4. Dorsolateral aspect right foot abscess. 5. Necrotic wound left buttock. 6. Urinary tract infection. 7. Empyema. 8. Septic emboli. 9. IV drug abuse. 10. Hyponatremia. HOSPITAL COURSE The patient is a 26-year-old female who presented to [facility] emergency department complaining of fever. Apparently she had had body aches and left-sided buttock wound in the emergency department. She was noted to have a urinalysis consistent with urinary tract infection with sodium of 116. Workup revealed left buttock cellulitis, possible abscess and folliculitis. The patient is a known IV drug user and was started on IV Zosyn and vancomycin. Given her history of IV drug abuse, the patient underwent two-dimensional echo which revealed infective endocarditis. Blood cultures ultimately returned, growing MRSA. Blood cultures drawn 01/07/2017 ultimately returned negative and the patient has continued on vancomycin since admission on 01/03/2017. Over the course of this hospitalization the patient was noted to have multiple other abscesses as listed above. She was taken for incision and drainage of her right forearm and dorsolateral right foot abscess. She was also seen by orthopedics for her septic bursitis. All cultures have returned growing MRSA. Also as mentioned above, the patient was treated briefly for a urinary tract infection with Rocephin for e-coli. Since the admission, the patient has improved greatly. She has requested help with her drug problem and at the time of this dictation the plan is to discharge the patient to [facility] on 01/24/2017 for treatment for both her endocarditis and drug addiction. The patient will require vancomycin until 02/19/2017. DISCHARGE DIAGNOSES 1. Tylenol 650 mg q.6 h. p.r.n. mild pain and q.4 h. temperature greater Unit #: [id number] #: [id number] Patient: JESSE OLIVO than 101. 2. Magnesium oxide 250 mg 1 p.o. b.i.d. 3. Bactroban ointment topically daily. 4. Neurontin 300 mg p.o. t.i.d. and q.8 h. p.r.n. leg cramps. 5. Desyrel 100 mg p.o. at nighttime. 6. Zofran 4 mg p.o. q.4 h. p.r.n. 7. Requip 1 mg p.o. b.i.d. 8. Hydroxyzine 50 mg p.o. t.i.d. 9. Nicotine patch 21 mg transdermally daily. 10. Lopressor 12.5 mg p.o. b.i.d. 11. Roxicodone 5 mg 1 p.o. q.4 h. p.r.n. 12. Zyprexa 10 mg p.o. at nighttime. 13. Os-Saeid 500 plus D, 500 mg p.o. q.8 h. 14. Vancomycin 1 g q.8 h. until 02/19/2017. FOLLOWUP The patient is being discharged to [facility]. Appropriate outpatient followup can be determined upon discharge from that facility. Dictated by... Sylvia Dye TD: 01/23/2017 11:13 JOB #: [id number] DISCHARGE SUMMARY Page 1 of 1 X Kevin Barrera MD X DISCHARGE SUMMARY
--- NOTE | ~2017-01-03 | CR72 ---
[facility] A Service of [facility] & [facility] RADIOLOGY TEXT RESULTS PATIENT: JESSE OLIVO LOCATION: [facility] 549-01 : [birth year] UNIT #: [id number] AGE: [address]: Cinthia Christensen MD SEX: F ORDER DR: [id number] [facility] [address] [place], [place] [address] [id number] I MR#: [id number] Acc #: [id number] NAME: JESSE OLIVO : 1990 SEX: F STUDY DATE/TIME: 01/04/2017 15:56 UNIT: [facility] ROOM: [facility] STUDY DESCRIPTION: CR Chest Single View Portable Attending Physician: Kevin Barrera M.D. Ordering Physician: vAani Manning M.D. Primary Care Physician: No Primary Care Physician MEDICAL IMAGING REPORT This report is preliminary unless electronic signature is present EXAM Single view of the chest dated 01/04/2017 at 15:56 hours. COMPARISON Single view chest dated 01/04/2017 at 1526 hours. HISTORY Chest tube placement. FINDINGS Frontal view of the chest was obtained. Right-sided chest tube is noted with interval improvement in the right-sided pneumothorax. Mild right pleural effusion is again seen with associated atelectasis/infiltrate in the right lung particularly in the right lung base. The new right-sided chest tube extends superiorly and medially with the tip abutting the superomedial aspect at the region of the T1 vertebral body in the first rib. Projected over the T1 vertebral body and first rib. Mild atelectatic changes are noted in the left lung predominantly in the left upper lobe and left mid lung zone. Heart is unremarkable. Left IJ approach PICC line catheter tip is in the region of the cavoatrial junction extending towards the right atrium. It appears to be slightly lower in position probably due to the expiratory film. Dictated by... Gurjit Dale M.D. THIS IS AN ELECTRONICALLY VERIFIED REPORT Gurjit Dale M.D. at 01/06/2017 5:09 PM CPR/rnr TD: 01/04/2017 23:04 JOB #: [id number] [facility] A Service of [facility] RADIOLOGY TEXT RESULTS PATIENT: JESES OLIVO LOCATION: [facility] 549-01 : [birth year] UNIT #: [id number] AGE: [address]: Cinthai Christensen MD SEX: F ORDER DR: MEDICAL IMAGING REPORT Page 1 of 1 COPY
--- NOTE | ~2017-01-03 | CR72 ---
[facility] A Service of [facility] & [facility] RADIOLOGY TEXT RESULTS PATIENT: JESSE OLIVO LOCATION: [facility] 549-01 : [birth year] UNIT #: [id number] AGE: [address]: Cinthia Christensen MD SEX: F ORDER DR: [id number] [facility] [address] [place], [place] [address] [id number] I MR#: [id number] Acc #: [id number] NAME: JESSE OLIVO : 1990 SEX: F STUDY DATE/TIME: 01/12/2017 UNIT: [facility] ROOM: [facility] STUDY DESCRIPTION: CR Chest Single View Portable Attending Physician: Cinthia Christensen M.D. Ordering Physician: Avani Manning M.D. Primary Care Physician: Primary Care Physician No MEDICAL IMAGING REPORT This report is preliminary unless electronic signature is present EXAM Portable chest 01/12 at 04:50 INDICATIONS Fever, body aches. History of IV drug abuse. FINDINGS AP portable chest compared with 01/11/2017. The left IJ line remains at the right atrial level. The heart size stable. Small left effusion is unchanged. Mid left lung opacity is stable. There is a stable small right hydropneumothorax with some nodular opacities at the right base. IMPRESSION Stable appearance of the chest. Persistent small right hydropneumothorax with a small left pleural effusion. Bilateral nodular infiltrates are stable in the short interval. Dictated by... Mark Wisdom Jr., M.D. THIS IS AN ELECTRONICALLY VERIFIED REPORT Mark Wisdom Jr., M.D. at 01/12/2017 9:26 PM KIP/ron TD: 01/12/2017 11:34 JOB #: [id number] MEDICAL IMAGING REPORT Page 1 of 1 COPY
--- NOTE | ~2017-01-03 | US49 ---
[facility] A Service of [facility] & [facility] RADIOLOGY TEXT RESULTS PATIENT: JESSE OLIVO LOCATION: [facility] 549-01 : [birth year] UNIT #: [id number] AGE: [address]: Cinthia Christensen MD SEX: F ORDER DR: [id number] [facility] [address] [place], [place] [address] [id number] I MR#: [id number] Acc #: [id number] NAME: JESSE OLIVO : 1990 SEX: F STUDY DATE/TIME: 01/11/2017 8:56 UNIT: [facility] ROOM: [facility] STUDY DESCRIPTION: US Extremity Non Vasc Complete Attending Physician: Cinthia Christensen M.D. Ordering Physician: Cinthia Christensen M.D. MEDICAL IMAGING REPORT This report is preliminary unless electronic signature is present EXAM Soft tissue ultrasound right upper arm HISTORY Swelling and redness and pain for 1 week. Abnormal recent ultrasound 01/08/2017. FINDINGS Soft tissue ultrasound of the right upper arm was performed in the region of soft tissue swelling from the mid-upper arm to the antecubital fossa, demonstrating no focal fluid collection or soft tissue mass or abscess. IMPRESSION No focal abnormalities identified in the right upper arm. Suggest further management based upon clinical assessment. Dictated by... Tomas Hwang M.D. THIS IS AN ELECTRONICALLY VERIFIED REPORT Tomas Hwang M.D. at 01/11/2017 10:49 PM DFL/pcl TD: 01/11/2017 15:15 JOB #: [id number] MEDICAL IMAGING REPORT Page 1 of 1 COPY
--- NOTE | ~2017-01-03 | CO ---
Unit #: [id number] #: [id number] Patient: JESSE OLIVO [id number] [facility] [address] [place], [place] [address] [id number] I MR#: [id number] NAME: JESSE OLIVO ROOM: 549 Age: 26 Sex: F Admission Date: 01/03/2017 : 1990 Attending Physician: Cinthia Christensen M.D. Consultation Date: 01/09/2017 CONSULTATION REPORT DISCUSSION Ms. Jesse Olivo is a 26-year-old female, seen in room 549, bed 1 on 01/09/2017. The patient was seen at [facility]. The patient dressed in hospital attire, lying comfortably in bed, pleasant and cooperative, made good eye contact. Able to answer questions. Alert and oriented in time, place, and person. The patient understands the reason for being in the hospital and cooperative with treatment. The patient denied any thoughts of harming self or others or any psychotic symptom. Vital signs; temperature 98.7, pulse 109, respirations 18, blood pressure 136/102, and oxygen saturation 97%. REVIEW OF SYSTEMS Complete review of systems is unremarkable except as mentioned above. MENTAL STATUS EXAMINATION General appearance; the patient dressed in hospital attire, lying comfortably in bed. Attention span and concentration, fair. Speech; regular rate and coherent. Oriented in time, place, and person. Mood and affect, labile. Thought process, coherent. Thought content; the patient denied any thoughts of harming self or others or any psychotic symptom. Recent and remote memory, fair. Language, intact. Fund of knowledge, fair. Insight and judgment, fair to slightly impaired. DIAGNOSES Psychiatric: Opioid use disorder, severe, F11.20; major depressive disorder, recurrent, severe, F33.2; anxiety disorder, not otherwise specified, F40.01. ASSESSMENT AND PLAN 1. Supportive psychotherapy and psychoeducation provided to the patient. 2. Educated about benefits and side effects of medication and course and prognosis of illness. 3. Based on the current examination, the patient is able to make informed medical decision at this time. 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 Suggest [facility] in [place], so that the patient can get rehab as well as her antibiotic therapy. Please feel free to call if any questions, telephone #[phone]. Dictated by... Sylvia Gilmore/марина Unit #: [id number] #: [id number] Patient: JESSE OLIVO TD: 01/10/2017 22:56 JOB #: [id number] CONSULTATION REPORT Page 1 of 1 X Fam Medina MD X CONSULTATION REPORT
--- NOTE | ~2017-01-03 | CO ---
Unit #: [id number] #: [id number] Patient: JESSE OLIVO [id number] [facility] [address] [id number] I MR#: [id number] NAME: JESSE OLIVO ROOM: 549 Age: 26 Sex: F Admission Date: 01/03/2017 : 1990 Attending Physician: Kevin Barrera M.D. Primary Care Physician: No Primary Care Physician Consultation Date: 01/20/2017 CONSULTATION REPORT REASON FOR CONSULTATION Followup. DISCUSSION Ms. Jesse Olivo is a 26-year-old female seen in room 549, bed 1 on 01/20/2017 at [facility]. Patient reports that increase in Neurontin helped her. Denied any side effects from medications. Denied any suicidal or homicidal ideation. Reports anxiety, depression is better. Able to sleep good. Able to answer questions appropriately. Patient denied any agitation. Patient's family was in the room. Reports that she is looking forward to being discharged and followup in a rehab program. Patient's vital signs are 98.4, 105, 16, 121/69, oxygen saturation 99%. REVIEW OF SYSTEMS A complete review of systems unremarkable. MENTAL STATUS EXAMINATION General appearance: Patient dressed casually. Attention span and concentration fair. Patient lying comfortably in bed, dressed in hospital attire. Speech regular rate, coherent. Oriented in time, place, and person. Mood and affect was labile. Thought process coherent. Thought content: Patient denied any thoughts of harming self or others. Recent and remote memory fair. Language intact. Fund of knowledge fair. Insight and judgment fair to slightly impaired. DIAGNOSES PSYCHIATRIC: Opiate use disorder, severe, F11.20. Major depressive disorder, recurrent, severe, F33.2. Anxiety disorder, not otherwise specified, F40.01. ASSESSMENT AND PLAN 1. Supportive psychotherapy and psychoeducation provided to patient. 2. Educated about benefits and side effects of medications and course and prognosis of illness. 3. Advised to continue with the current medication. If needed, consider further adjustment of medications. We will continue to follow. Please feel free to call if any questions, . Dictated by... Unit #: [id number] #: [id number] Patient: YORK,JESSESylvia Lorenzo TD: 01/22/2017 09:45 JOB #: [id number] CONSULTATION REPORT Page 1 of 1 X Fam Medina MD CONSULTATION REPORT
--- NOTE | ~2017-01-03 | CO ---
Unit #: [id number] #: [id number] Patient: JESSE OLIVO [id number] [address] [address] [id number] I MR#: [id number] NAME: JESSE OLIVO ROOM: 549 Age: 26 Sex: F Admission Date: 01/03/2017 : 1990 Attending Physician: Kevin Barrera M.D. Consultation Date: 01/14/2017 CONSULTATION REPORT DISCUSSION Ms. Jesse Olivo is a 26-year-old female, seen on 01/14/2017. The patient interviewed, chart reviewed, and obtained information from nursing staff. The patient seen in room 474, bed 1 on 01/14/2017. The patient dressed in hospital attire, pleasant, cooperative, still somewhat anxious and nervous, but reports sleeping good, decrease in anxiety and depression. Denied any suicidal or homicidal ideation. Denied any psychotic symptom. The patient's vital signs; temperature 97.8, pulse 116, respirations 18, blood pressure 113/73, and oxygen saturation 97%. REVIEW OF SYSTEMS Complete review of system unremarkable. MENTAL STATUS EXAMINATION General appearance; the patient dressed casually, sitting comfortably in chair, eating her breakfast. Attention span and concentration, fair. Speech, regular rate and coherent. Oriented in time, place, and person. Mood and affect; sad and dysphoric, but able to smile. Thought process, coherent. Thought content, the patient denied any thoughts of harming self or others. Denied any psychotic symptom. Recent and remote memory, fair. Language, intact. Fund of knowledge, fair. Insight and judgment, fair to slightly impaired. DIAGNOSES Psychiatric: Opioid use disorder, severe, F11.20; major depressive disorder, recurrent, severe, F33.2. ASSESSMENT/PLAN 1. Supportive psychotherapy and psychoeducation provided to the patient. 2. Educated about benefits and side effects of medication and course and prognosis of illness. 3. Advised to continue with current combination of medication. If needed, consider further adjustment of medication. Please feel free to call if any question, telephone #[phone]. Dictated by... Fam Medina M.D. MICAH/марина TD: 01/14/2017 23:28 JOB #: [id number] Unit #: [id number] #: [id number] Patient: JESSE OLIVO CONSULTATION REPORT Page 1 of 1 X Fam Medina MD CONSULTATION REPORT
--- NOTE | ~2017-01-03 | US48 ---
[facility] A Service of [facility] RADIOLOGY TEXT RESULTS PATIENT: JESSE OLIVO LOCATION: [facility] 549-01 : [birth year] UNIT #: [id number] AGE: [address]: Kevin Barrera MD SEX: F ORDER DR: [id number] [facility] [address] [place], [place] [address] [id number] I MR#: [id number] Acc #: [id number] NAME: JESSE OLIVO : 1990 SEX: F STUDY DATE/TIME: 01/10/2017 13:38 UNIT: [facility] ROOM: [facility] STUDY DESCRIPTION: US Extremity Anatomic Specific Attending Physician: Cinthia Christensen M.D. Ordering Physician: Cinthia Christensen M.D. MEDICAL IMAGING REPORT This report is preliminary unless electronic signature is present EXAM Soft tissue ultrasound, left calf, 01/10/2017 HISTORY 26-year-old female with history of IV drug abuse and multifocal soft tissue abscesses. Buttock abscess. History of MRSA. Left calf swelling. Evaluate for abscess. TECHNIQUE Tissue ultrasound examination of the left calf was performed. The examination shows a solitary, oblong, ovoid fluid collection within the musculature of the left lateral mid calf measuring about 3.4 cm in length and 2.5 x 0.8 cm short axis. No additional fluid collection is seen. The findings are nonspecific. Infected fluid collection or abscess as well as hematoma could have this appearance. Given the patient's history of multifocal soft tissue abscesses elsewhere, left calf abscess should be primarily considered. Clinical correlation recommended. IMPRESSION Heterogeneous fluid collection in the left lateral calf as detailed above. Based on the clinical setting, soft tissue abscess should be considered. Dictated by... Joe Szymanski M.D. THIS IS AN ELECTRONICALLY VERIFIED REPORT Joe Szymanski M.D. at 01/14/2017 10:33 AM DWIGHT/chin TD: 01/10/2017 22:28 JOB #: [id number] [facility] A Service of [facility] & [facility] RADIOLOGY TEXT RESULTS PATIENT: JESSE OLIVO LOCATION: [facility] 549-01 : [birth year] UNIT #: [id number] AGE: [address]: Kevin Barrera MD SEX: F ORDER DR: MEDICAL IMAGING REPORT Page 1 of 1 COPY
--- NOTE | ~2017-01-03 | CO ---
Unit #: [id number] #: [id number] Patient: JESSE OLIVO [id number] [address] [address] [id number] I MR#: [id number] NAME: JESSE OLIVO ROOM: 549 Age: 26 Sex: F Admission Date: 01/03/2017 : 1990 Attending Physician: Kevin Barrera M.D. Primary Care Physician: Primary Care Physician No Consultation Date: 01/16/2017 CONSULTATION REPORT DISCUSSION Ms. Jesse Olivo is a 26-year-old female, seen in room 549, bed 1 on 01/16/2017. The patient dressed casually, lying comfortably in bed. The patient reports still having problem with the anxiety, trouble sleeping, mood lability. The patient denied any suicidal or homicidal ideation. Denied any psychotic symptom. Compliant with medication, but somewhat anxious and nervous. REVIEW OF SYSTEMS Complete review of systems unremarkable. MENTAL STATUS EXAMINATION The patient's vital signs; temperature 98.4, pulse 113, respiratory rate 16, blood pressure 106/57, and oxygen saturation 98%. General appearance; the patient dressed casually in hospital attire, lying comfortably in bed. Attention span and concentration, fair. Speech, slow in volume and rate. Oriented in place and person. Mood and affect; sad, depressed, anxious. Thought process, coherent. Thought content, the patient denied any thoughts of harming self or others or any hallucination. Recent and remote memory, fair. Language, intact. Fund of knowledge, fair. Insight and judgment, fair to slightly impaired. DIAGNOSES Psychiatric: Opioid use disorder, severe, F11.20; major depressive disorder, recurrent, severe, F33.2. ASSESSMENT/PLAN Advised to continue with current medication and therapeutic protocol. If needed, consider further adjustment of medication. Please feel free to call if any questions, telephone #[phone]. Dictated by... Sylvia Gilmore/марина TD: 01/17/2017 22:27 JOB #: [id number] Unit #: [id number] #: [id number] Patient: JESSE OLIVO CONSULTATION REPORT Page 1 of 1 X Fam Medina MD CONSULTATION REPORT
--- NOTE | ~2017-01-03 | US49 ---
[facility] A Service of [facility] & [facility] RADIOLOGY TEXT RESULTS PATIENT: JESSE OLIVO LOCATION: [facility] 549-01 : [birth year] UNIT #: [id number] AGE: [address]: Cinthia Christensen MD SEX: F ORDER DR: [id number] [place] [id number] [facility] [place], [place] [address] [id number] I MR#: [id number] Acc #: [id number] NAME: JESSE OLIVO : 1990 SEX: F STUDY DATE/TIME: 01/08/2017 8:55 UNIT: [facility] ROOM: [facility] STUDY DESCRIPTION: US Extremity Non Vasc Complete Attending Physician: Cinthia Christensen M.D. Ordering Physician: Nils Perez M.D. Primary Care Physician: Primary Care Physician No MEDICAL IMAGING REPORT This report is preliminary unless electronic signature is present EXAM Ultrasound extremity nonvascular complete HISTORY Abscess, redness, swelling dorsal surface of feet x4 days. Evaluate for abscess. FINDINGS Real-time ultrasonography performed bilateral feet. On the right along the lateral aspect of the foot, there is a localized area of hypoechogenicity measuring 9.5 mm x 5.3 mm x 7.7 mm. The appearance is nonspecific. This area shows no vascular flow on color Doppler interrogation. It does not appear to be simple fluid. It could be an area of complicated fluid. In the appropriate clinical context, small abscess could be considered. Evolving hematoma could be considered. Along the medial aspect of the left foot in the area of concern indicated by patient, no localized abnormality is seen. Management Expert indicates this area was difficult to evaluate secondary to patient movement. IMPRESSION 1. Along the lateral aspect of the right foot in area of palpable abnormality indicated by patient, there is a hypoechoic focus measuring 9.5 mm x 5.3 mm x 7.7 mm. The appearance is nonspecific. This does not appear to represent simple fluid but could represent complicated fluid. In the appropriate clinical context, considerations could include small abscess or small evolving hematoma. 2. No distinct abnormality seen in area of concern left foot. See discussion above. [facility] A Service of [facility] & [facility] RADIOLOGY TEXT RESULTS PATIENT: JESSE OLIVO LOCATION: [facility] 549-01 : [birth year] UNIT #: [id number] AGE: [address]: Cinthia Christensen MD SEX: F ORDER DR: Dictated by... Omar Matos M.D. THIS IS AN ELECTRONICALLY VERIFIED REPORT Omar Matos M.D. at 01/09/2017 6:12 PM PATRICK/kadi TD: 01/08/2017 10:15 JOB #: [id number] MEDICAL IMAGING REPORT Page 1 of 1 COPY
--- NOTE | ~2017-01-03 | CO ---
Unit #: [id number] #: [id number] Patient: JESSE OLIVO [id number] [facility] [address] [place], [place] [address] [id number] MR#: [id number] NAME: JESSE OLIVO ROOM: 549 Age: 26 Sex: F Admission Date: 01/03/2017 : 1990 Attending Physician: Kevin Barrera M.D. Primary Care Physician: Primary Care Physician No Consultation Date: 01/22/2017 CONSULTATION REPORT REASON FOR CONSULTATION Followup. DISCUSSION Ms. Jesse Olivo is a 26-year-old female, seen on 01/22/2017 in room 549, bed 1 at [facility]. The patient was dressed in hospital attire, sitting comfortably in a bed, made good eye contact. Reports decrease in anxiety and depression. Reports making progress. The patient denied any thoughts of harming self or others or any psychotic symptom. The patient denied any withdrawal symptom. Reports feeling better. The patient is looking forward to go to [facility]. The patient's vital signs are temperature 99.2, pulse 101, respiratory rate 18, blood pressure 105/62, and oxygen saturation 98%. REVIEW OF SYSTEMS Complete review of systems is unremarkable. MENTAL STATUS EXAMINATION General appearance, the patient dressed casually in hospital attire. Attention span and concentration, fair. Speech, regular rate and coherent. Oriented in time, place, and person. Mood and affect, labile. Thought process, coherent. Thought content, the patient denied any thoughts of harming self or others or any psychotic symptom. Recent and remote memory, fair. Language, intact. Fund of knowledge, fair. Insight and judgment, fair to slightly impaired. DIAGNOSES Psychiatric: Opioid use disorder, severe, F11.20; major depressive disorder, recurrent, severe, F33.2; anxiety disorder, not otherwise specified, F40.01. ASSESSMENT/PLAN 1. Supportive psychotherapy and psychoeducation provided to the patient. 2. Educated about benefits and side effects of medication and course and prognosis of illness. 3. Advised to continue with current combination of medication and [facility]. In the meantime, continue with current medication. Please feel free to call if any questions, telephone #[phone]. Dictated by... Fam Medina M.D. Unit #: [id number] #: [id number] Patient: JESSE OLIVO MICAH/марина TD: 01/22/2017 23:33 JOB #: [id number] CONSULTATION REPORT Page 1 of 1 X Fam Medina MD CONSULTATION REPORT
--- NOTE | ~2017-01-03 | CO ---
Unit #: [id number] #: [id number] Patient: JESSE OLIVO [id number] [facility] [address] [id number] I MR#: [id number] NAME: JESSE OLIVO ROOM: 549 Age: 26 Sex: F Admission Date: 01/03/2017 : 1990 Attending Physician: Cinthia Christensen M.D. Consultation Date: 01/06/2017 CONSULTATION REPORT REASON FOR CONSULTATION Followup. DISCUSSION Ms. Jesse Olivo is a 26-year-old female, seen in room 14, CCU-3 at [facility]. The patient is anxious and nervous. Reported having restlessness of her legs, anxiety, trouble sleeping, sad, depressed, mood lability. The patient reported having withdrawal symptoms. The patient's vital signs; pulse 110, respirations 28, blood pressure 130/94, and oxygen saturation 97%. REVIEW OF SYSTEMS Complete review of systems unremarkable. MENTAL STATUS EXAMINATION General appearance; the patient dressed casually in hospital attire, lying comfortably in bed, having above-mentioned symptoms. Attention span and concentration, fair. Speech, rapid in rate. Oriented in time, place, and person. Mood and affect, labile. Thought process, circumstantial. Thought content, the patient denied any thoughts of harming self or others or any psychotic symptom. Recent and remote memory, fair. Language, intact. Fund of knowledge, fair. Insight and judgment, fair to slightly impaired. DIAGNOSES Psychiatric: 1. Opioid use disorder, severe, F11.20. 2. Amphetamine use disorder, severe, F15.20. 3. Major depressive disorder, recurrent, severe, F33.2. ASSESSMENT/PLAN 1. Supportive psychotherapy and psychoeducation provided to the patient. 2. Educated about benefits and side effects of medication and course and prognosis of illness. 3. Recommending at this time to add Zyprexa 5 mg at bedtime as the patient is reporting paranoia and mood lability, Desyrel 50 mg at bedtime for sleep, Requip 1 mg b.i.d. for restless legs syndrome, Neurontin 300 mg t.i.d. for anxiety and withdrawal from opiates, Vistaril 25 mg t.i.d. for anxiety. We will continue to do with the following medication. If needed, consider further adjustment of medication. Please feel free to call if any questions, telephone #[phone]. Dictated by... Unit #: [id number] #: [id number] Patient: JESSE OLIVO M.D. SZC/марина TD: 01/07/2017 00:22 JOB #: [id number] CONSULTATION REPORT Page 1 of 1 X Fam Medina MD X CONSULTATION REPORT
--- NOTE | ~2017-01-03 | CO ---
Unit #: [id number] #: [id number] Patient: JESSE OLIVO [id number] [facility] [address] [facility]. [place], [place] [address] [id number] I MR#: [id number] NAME: JESSE OLIVO ROOM: [facility] Age: 26 Sex: F Admission Date: 01/03/2017 : 1990 Attending Physician: Cinthia Christensen M.D. CONSULTATION REPORT REASON FOR CONSULTATION Opioid abuse, amphetamine abuse, depression. HISTORY OF PRESENT ILLNESS Ms. Rodas is a 26-year-old white female, seen in CCU 3, bed 14. ADDENDUM The patient is seen in room CCU 3, bed 14. The patient dressed in hospital attire, lying comfortably in bed, confused. The patient seen at [facility]. The patient was admitted with polysubstance abuse; drug of choice, amphetamine, opioids. Still feeling sad, depressed, confused, guarded. The patient few minutes ago, had a chest tube placed and was given ketamine, still hallucinating paranoid, unable to give coherent history, but pleasant and cooperative. The patient had multiple scars all over her body and abscesses also on the face from picking on her skin. The patient is somewhat drowsy. The patient's vital signs 127, 19, 137/70, oxygen saturation 95%. PAST PSYCHIATRIC HISTORY History of polysubstance abuse, history of previous treatment in 2013 at [facility] for opioid dependence. No history of any suicide attempt. MEDICAL HISTORY Remarkable for left buttock abscess, pain, fever, history of hepatitis B and C, history of HPV virus, history of I and D of left antecubital fossa. MEDICATION None. FAMILY HISTORY AND SOCIAL HISTORY The patient has a poor support system. History of polysubstance abuse. No known history of any abuse. REVIEW OF SYSTEMS Complete review of systems is unremarkable except as mentioned above. MENTAL STATUS EXAMINATION General appearance, the patient is thin built, dressed in hospital attire, anxious, nervous, confused. Attention span and concentration, poor. Speech, slow, at times difficult to understand. Orientation in self. Mood and affect, labile. Thought process, circumstantial. Thought content, guarded, paranoid, but denied any thoughts of harming self or Unit #: [id number] #: [id number] Patient: JESSE OLIVO others. Recent and remote memory, poor. Language, poor. Fund of knowledge, impaired. Insight and judgment, impaired. DIAGNOSES Psychiatric: Amphetamine use disorder, severe, F15.20; opioid use disorder, severe, F11.20; major depressive disorder, recurrent, severe, F33.2. Secondary diagnosis: Deferred. Medical diagnosis: Please refer to H and P. Stressors: Psychosocial stressor. ASSESSMENT AND PLAN 1. Supportive psychotherapy and psychoeducation provided to the patient, but the patient unable to comprehend much. 2. Advised to continue with current treatment. If needed, consider medication such as Zyprexa or haloperidol to control psychosis and agitation. Monitor for withdrawal symptoms. We will treat accordingly. At this time, the patient is very sleepy. We will not prescribe any medication, but continue to follow. Please feel free to call if any questions, telephone #[phone]. JOB #: [id number] Dictated by... Sylvia Gilmore/марина TD: 01/05/2017 17:33 JOB #: [id number] CC: Trevon/paulaision Please Delete CONSULTATION REPORT Page 1 of 1 X Fam Medina MD X CONSULTATION REPORT
--- NOTE | ~2017-01-03 | CO ---
Unit #: [id number] #: [id number] Patient: JESSE OLIVO [id number] [facility] [address] [place], [place] [address] [id number] I MR#: [id number] NAME: JESSE OLIVO ROOM: 549 Age: 26 Sex: F Admission Date: 01/03/2017 : 1990 Attending Physician: Kevin Barrera M.D. Consultation Date: 01/13/2017 CONSULTATION REPORT REASON FOR CONSULTATION Followup. DISCUSSION Ms. Rodas is a 26-year-old female, seen in room 549 bed 1 on 01/13/[address] [facility]. The patient reports still having trouble sleeping, anxiety, anxious, and nervous. The patient reports that she will be going to [facility]. The patient denied any suicidal or homicidal ideation. Denied any psychotic symptom. Reports medication is helping her. Vital signs, temperature 99.0, pulse 112, respirations 16, blood pressure 126/82, oxygen saturation 96%. REVIEW OF SYSTEMS Complete review of systems unremarkable. MENTAL STATUS EXAMINATION General appearance, the patient dressed casually, lying comfortably in bed. Attention span and concentration, fair. Speech, regular rate and coherent. Oriented in time, place, and person. Mood and affect were sad and dysphoric. Thought process, coherent. Thought content, the patient denied any thoughts of harming self or others. Recent and remote memory, fair. Language, intact. Fund of knowledge, fair to slightly impaired. DIAGNOSES Psychiatric: Opiate use disorder, severe, F11.20; major depressive disorder, recurrent, severe, F33.2. ASSESSMENT AND PLAN 1. Supportive psychotherapy and psychoeducation provided to the patient. 2. Educated about benefits and side effects of medication and course and prognosis of illness. 3. Advised to continue with current combination of medication. If needed, consider further adjustment of medication. Please feel free to call if any questions telephone #[phone]. Dictated by... Fam Medina M.D. MICAH/марина TD: 01/14/2017 08:02 JOB #: [id number] Unit #: [id number] #: [id number] Patient: JESSE OLIVO CONSULTATION REPORT Page 1 of 1 X Fam Medina MD CONSULTATION REPORT
--- NOTE | ~2017-01-03 | CO ---
Unit #: [id number] #: [id number] Patient: JESSE OLIVO [id number] [address] [place], [place] [address] [id number] I MR#: [id number] NAME: JESSE OLIVO ROOM: [facility] Age: 26 Sex: F Admission Date: 01/03/2017 : 1990 Attending Physician: Cinthia Christensen M.D. Consultation Date: 01/04/2017 CONSULTATION REPORT REASON FOR CONSULTATION Possible endocarditis. HISTORY OF PRESENT ILLNESS This is a 26-year-old white female, new to our group with a past medical history of hepatitis B and C, IV heroin abuse, and polysubstance abuse. There are no reports of hypertension, hyperlipidemia, diabetes mellitus, myocardial infarction, or cerebrovascular accident. The patient actively smokes a pack of cigarettes per day. There are no reports of alcohol. She does inject heroin on a daily basis and also has a history of marijuana and amphetamine use. She presented to the emergency department on 01/03/2017 with complaints of body aches and fever. In the emergency department, she was found to have a left buttock abscess and folliculitis as well as multiple pustules on the face. Initial labs revealed a white blood cell count 37.5, hemoglobin was 10.9 with hematocrit 32.3, platelets were normal at 330. Chemistry revealed a critical sodium of 116, potassium was 4.1, creatinine and BUN were normal. AST was elevated at 114. Albumin was low. Chest x-ray revealed a moderate size right pleural effusion with moderate right basilar atelectasis. CT of the pelvis with contrast revealed an abscess with fluid visible in the muscular tissue medial to the acetabulum as well as medial to the inferior pubic ramus. Blood cultures were obtained and preliminary growth shows Staph aureus in one of two sets. The patient was started on antibiotics. Cardiology was consulted to rule out endocarditis. Of note, the patient was very lethargic during exam and history was difficult to obtain. Information has been obtained from prior documentation and staff. PAST MEDICAL HISTORY 1. Hepatitis B. 2. Hepatitis C. 3. HPV. 4. Polysubstance abuse with heroin and marijuana and methamphetamines. 5. Active tobacco abuse. PAST SURGICAL HISTORY 1. I and D of left cubital fossa. 2. Laser surgery due to HPV. HOME MEDICATIONS None. ALLERGIES Unit #: [id number] #: [id number] Patient: JESSE OLIVO No known drug allergies. SOCIAL HISTORY According to documentation, the patient smokes a pack of cigarettes per day. There are no reports of alcohol. She does inject heroin on a daily basis. She also has a history of marijuana and amphetamines. FAMILY HISTORY Noncontributory. REVIEW OF SYSTEMS Difficult to obtain per patient. Please see details in HPI. PHYSICAL EXAMINATION VITAL SIGNS: Temperature 99, pulse 90, blood pressure 131/56. CONSTITUTIONAL: This is an ill-appearing white female. SKIN: Reveals multiple pustules on the face and body. NECK: Supple. No jugular vein distention. No hepatojugular reflux. Normal carotid upstrokes. No carotid bruits auscultated. HEART: S1 and S2. Regular rate and rhythm, but tachycardic. No murmurs, rubs, or gallops. LUNGS: Bilateral breath sounds, diminished in the right base. Respirations are even and nonlabored. No rales, rhonchi, or wheezes. ABDOMEN: Soft, nontender, and nondistended. Positive bowel sounds auscultated x4 quadrants. No ascites noted. EXTREMITIES: Bilateral lower extremities have trace pretibial pitting edema. DP and PT pulses are 2+. Capillary refill is less than 2 seconds. DIAGNOSTIC STUDIES LABORATORY RESULTS: White blood cell count 24.7, hemoglobin 10.1, hematocrit 31.2, and platelets 321. Sodium 127, potassium 3.4, chloride 97, CO2 of 23, chloride 97, BUN 14, creatinine 0.7, glucose 110, calcium 7.4. AST 97, ALT 34, alkaline phosphatase 113, albumin 1.9. Phosphorus 2.2. Total protein 6.4, magnesium 2.3. BNP 119. Lactic acid 1.4 and 1.1. Urine toxicology positive for amphetamines and opiates. Urinalysis positive for 1+ leuks, positive nitrites, 3+ protein, 2 urobilinogen, 3+ blood, 4+ bacteria. Preliminary blood cultures positive for Staph aureus one out of two. IMAGING STUDIES: Chest x-ray on 01/03/2017 revealed a moderate right pleural effusion with moderate right basilar atelectasis. CT of the pelvis with contrast revealed an abscess with fluid visible in the muscular tissue medial to the acetabulum as well as medial to the inferior pubic ramus. See full report for dimensions. CARDIOVASCULAR STUDIES: Telemetry reveals sinus tachycardia. EKG pending. IMPRESSION 1. Abnyaohq-xx-icrci right pleural effusion. 2. 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 3. Polysubstance abuse including IV heroin. 4. Pelvic abscess. 5. Hyponatremia. Unit #: [id number] #: [id number] Patient: JESSE OLIVO 6. Hypokalemia. 7. History of hepatitis B and C. 8. Active tobacco abuse. PLAN 1. The patient presented to the hospital with complaints of body aches and fever. She was admitted for pelvic abscess and concern for sepsis. 2. Cardiology was consulted for further evaluation of endocarditis. 3. CT of the chest without contrast will be ordered to rule out pulmonary abscesses. 4. The patient's electrolytes are being supplemented. 5. A CHELLE will be needed once the patient is more stable and cooperative. 6. The patient has been advised to refrain from tobacco and polysubstance abuse. Dictated by... Kenzie Jack APRN for Sylvia Whiteside/марина TD: 01/05/2017 22:45 JOB #: [id number] CONSULTATION REPORT Page 1 of 1 X X CONSULTATION REPORT
--- NOTE | ~2017-01-03 | CO ---
Unit #: [id number] #: [id number] Patient: JESSE OLIVO [id number] [facility] [address] [place] [address] [id number] I MR#: [id number] NAME: JESSE OLIVO ROOM: 549 Age: 26 Sex: F Admission Date: 01/03/2017 : 1990 Attending Physician: Kevin Barrera M.D. Consultation Date: 01/15/2017 CONSULTATION REPORT DISCUSSION Ms. Jesse Olivo is a 26-year-old female, seen in room 549, bed 1 on 01/15/2017 at [facility]. The patient seems somewhat in pain, anxious, nervous, sad and dysphoric mood. The patient denied any thoughts of harming self or others. Compliant with the treatment. The patient lying comfortably in bed. Vital signs, stable. Temperature 98.6, pulse 105, respirations 18, Blood pressure 103/57, oxygen saturation 95%. The nurse on the unit has noticed change in mental status quickly from alert and awake to sedated after a visitor. The patient was advised not to take any medication by herself. The patient has had an incision and scrape of her right shoulder today. REVIEW OF SYSTEMS Complete review of systems unremarkable. MENTAL STATUS EXAMINATION General appearance; the patient dressed casually in hospital attire, lying comfortably in bed. Attention span and concentration, fair. Speech, regular rate and coherent. Oriented in time, place, and person. Mood and affect; labile, sad, dysphoric, anxious. Thought process, coherent. Thought content, the patient denied any thoughts of harming self or others or any hallucination. Recent and remote memory, fair. Language, intact. Fund of knowledge, fair. Insight and judgment, fair to slightly impaired. DIAGNOSES Psychiatric: 1. Opioid use disorder, severe, F11.20. 2. Major depressive disorder, recurrent, severe, F33.2. ASSESSMENT/PLAN 1. Supportive psychotherapy and psychoeducation provided to the patient. 2. Educated about benefits and side effects of medication and course and prognosis of illness. 3. Advised the patient to not to take any medication by herself as that could be dangerous and we will monitor very closely her visitors. If needed, consider one-on-one monitoring for safety. In the meantime, continue with current medication. Please feel free to call if any questions telephone #[phone]. Dictated by... Fam Medina M.D. [facility]/марина Unit #: [id number] #: [id number] Patient: JESSE OLIVO TD: 01/16/2017 05:03 JOB #: [id number] CONSULTATION REPORT Page 1 of 1 X Fam Medina MD X CONSULTATION REPORT
--- NOTE | ~2017-01-03 | CR72 ---
[facility] A Service of [facility] & [facility] RADIOLOGY TEXT RESULTS PATIENT: JESSE OLIVO LOCATION: [facility] 549-01 : [birth year] UNIT #: [id number] AGE: [address]: Cinthia Christensen MD SEX: F ORDER DR: [id number] [facility] [address] [facility] [address] [place], [place] [address] [id number] I MR#: [id number] Acc #: [id number] NAME: JESSE OLIVO : 1990 SEX: F STUDY DATE/TIME: 01/04/2017 15:26 UNIT: [facility] ROOM: [facility] STUDY DESCRIPTION: CR Chest Single View Portable Attending Physician: Kevin Barrera M.D. Ordering Physician: Avani Manning M.D. Primary Care Physician: No Primary Care Physician MEDICAL IMAGING REPORT This report is preliminary unless electronic signature is present EXAM Single view of the chest, dated 01/04/17, at 1526 hours. COMPARISON Single view chest dated 01/03/17 at 1916 hours. HISTORY Cough and congestion today. Central line placement. FINDINGS Frontal view of the chest was obtained. Left IJ approach central catheter is noted with the tip in the region of the inferior SVC extending towards the caval atrial junction. Adequate. There is mild to moderate right pleural effusion which does not appear to have significantly changed in volume when compared to the prior study from yesterday based on the given single image in this position. There is however interval new pneumothorax with a thickness of over 6 mm along the entire lateral aspect of the right hemithorax about the right-sided pleural fluid, giving rise to a hydropneumothorax. Associated atelectatic changes are noted in the right lung particularly involving the right lung base. Left lung is well aerated. Heart is of normal size. Next, attempts are made to contact Dr. Avani Manning. Findings were discussed with Dr. Landry at 4:20 p.m. on 01/04/17. He was covering for Dr. Manning. Dictated by... Gurjit Dale M.D. THIS IS AN ELECTRONICALLY VERIFIED REPORT Gurjit Dale M.D. at 01/06/2017 5:09 PM CPR/jt [facility] A Service of [facility] & [facility] RADIOLOGY TEXT RESULTS PATIENT: JESSE OLIVO LOCATION: [place] [address]- : [birth year] UNIT #: [id number] AGE: [address]: Cinthia Christensen MD SEX: F ORDER DR: TD: 01/04/2017 22:28 JOB #: [id number] MEDICAL IMAGING REPORT Page 1 of 1 COPY
--- NOTE | ~2017-01-03 | OR ---
Unit #: [id number] #: [id number] Patient: JESSE OLIVO [id number] [address] [address] [id number] I MR#: [id number] NAME: JESSE OLIVO ROOM: 549 Date of Procedure: 01/15/2017 Admission Date: 01/03/2017 Surgeon: Gino Finley M.D. : 1990 Attending Physician: Kevin Barrera M.D. OPERATIVE REPORT PREOPERATIVE DIAGNOSES 1. Septic bursitis, right subacromial space. 2. High-grade partial-thickness bursal sided supraspinatus tendon tear. 3. Anterior labral fraying. POSTOPERATIVE DIAGNOSES 1. Septic bursitis, right subacromial space. 2. High-grade partial-thickness bursal sided supraspinatus tendon tear. 3. Anterior labral fraying. PROCEDURES PERFORMED 1. Right shoulder glenohumeral joint aspiration. 2. Right shoulder arthroscopic extensive debridement including glenohumeral joint and subacromial space. [facility] Earline Franco APRN, [place]. ANESTHESIA General. ESTIMATED BLOOD LOSS Minimal. COMPLICATIONS None apparent. INDICATIONS FOR PROCEDURE Jesse is a 26-year-old female with a history of IV drug abuse with endocarditis and sepsis. She has multiple areas of septic emboli including the subcutaneous tissues as well as an empyema. Now, she has painful swollen right shoulder with inflammation and increased fluid in the subacromial space and subdeltoid space by MRI. In addition, she was noted to have a partial-thickness tear of the supraspinatus tendon. The clinical scenario and exam findings and imaging findings were concerning for septic bursitis. Arthroscopic debridement was indicated. She elected to proceed. DESCRIPTION OF PROCEDURE The patient was identified in the preoperative holding area. The operative site was marked. Preoperative antibiotics were not required as she is on standing vancomycin. Standing vancomycin dose was administered Unit #: [id number] #: [id number] Patient: JESSE OLIVO intraoperatively as it was due at that time. She was brought to the operating room and placed supine on the operating table. A general anesthetic was induced. She was positioned in the beach-chair position. The right upper extremity was then prepped and draped in sterile fashion. A standard posterior portal site was identified and marked out. An 18-gauge needle was advanced through the posterior portal site into the glenohumeral joint. This yielded approximately 1 to 2 mL of serosanguineous fluid. This was sent for wound culture. The skin was incised sharply with an 11 blade knife and the arthroscope was introduced into the glenohumeral joint. In the glenohumeral joint, shaver was introduced anteriorly as well. There was small amount of anterior labral fraying. This was debrided with the arthroscopic shaver. A small amount of synovial debris was debrided, but overall there does not appear to be any septic arthritis of the glenohumeral joint by visual inspection. The long head of the biceps was normal in appearance as was the superior and posterior labrum. The undersurface of the rotator cuff was unremarkable. The humeral head and glenoid were unremarkable as well. The scope was then removed from the glenohumeral joint and transferred to the subacromial space. In the subacromial space, there was thickened pathologic appearing bursal tissue concerning for possible infectious process. The shaver was introduced through a lateral portal. A subacromial bursectomy was performed. A formal decompression was not warranted. Debridement was performed of the partial-thickness rotator cuff tear as well. This was a high-grade partial-thickness tear. With further debridement, this likely would have communicated down nearly to the glenohumeral joint. We debrided this back only to a stable rim of tissue. The scope was then transferred to the lateral portal and the debridement continued through the posterior portal. Once we had removed all affected bursal tissue, we continued to flush the subacromial space running a total of three bags of 3000 mL of Ringer's through the subacromial space. The arthroscope was then withdrawn from the shoulder. Portal sites were closed with Prolene sutures. Sterile dressings were applied. DISPOSITION Stable to recovery room. Dictated by... Sylvia Oliveira/марина TD: 01/15/2017 14:16 JOB #: [id number] Unit #: [id number] #: [id number] Patient: JESSE OLIVO OPERATIVE REPORT Page 1 of 1 X Gino Finley MD PROCEDURE OPERATIVE NOTE
--- NOTE | ~2017-01-03 | CO ---
Unit #: [id number] #: [id number] Patient: JESSE OLIVO [id number] [address] [address] [id number] I MR#: [id number] NAME: JESSE OLIVO ROOM: 549 Age: 26 Sex: F Admission Date: 01/03/2017 : 1990 Attending Physician: Cinthia Christensen M.D. Primary Care Physician: Primary Care Physician No Consultation Date: 01/10/2017 CONSULTATION REPORT REASON FOR CONSULTATION Followup. DISCUSSION Ms. Jesse Olivo is a 26-year-old female, seen in room 549, bed 1 on 01/10/2017. The patient is dressed casually, lying comfortably in bed. Made good eye contact. Able to answer questions appropriately. The patient denied any thoughts of harming self or others. Denied any psychotic symptom. The patient is compliant with medication. Reports medication is helping her, but still continues to report having problem with the anxiety and trouble sleeping. The patient is tolerating medication fairly well. Currently on combination of Desyrel 100 mg at bedtime, Zyprexa, Requip, Neurontin. The patient was started on Roxicodone for pain. REVIEW OF SYSTEMS Complete review of systems unremarkable. MENTAL STATUS EXAMINATION Vital signs; temperature 98.2, pulse 108, respirations 18, blood pressure 126/91, oxygen saturation 97%. General appearance, the patient dressed casually in hospital attire, lying comfortably in bed. Attention span and concentration, fair. Speech, regular rate and coherent. Oriented in time, place, and person. Mood and affect, sad, dysphoric, anxious. Thought process, coherent. Thought content, the patient denied any thoughts of harming self or others. Recent and remote memory, fair. Language, intact. Fund of knowledge, fair. Insight and judgment, fair to slightly impaired. DIAGNOSES Opioid use disorder, severe, F11.20; major depressive disorder, recurrent, severe, F33.2. ASSESSMENT/PLAN 1. Supportive psychotherapy and psychoeducation provided to the patient. 2. Educated about benefits and side effects of medication and course and prognosis of illness. 3. Advised to continue with current treatment and medication. The patient reported that she may be going to [facility] for further treatment. Please feel free to call if any questions, telephone #[phone]. Dictated by... Fam Medina M.D. Unit #: [id number] #: [id number] Patient: JESSE OLIVO MICAH/марина TD: 01/11/2017 18:46 JOB #: [id number] CONSULTATION REPORT Page 1 of 1 X Fam Medina MD X CONSULTATION REPORT
--- NOTE | ~2017-01-03 | CR63 ---
[facility] A Service of [facility] RADIOLOGY TEXT RESULTS PATIENT: JESSE OLIVO LOCATION: C5B 549-01 : [birth year] UNIT #: [id number] AGE: [address]: Kevin Barrera MD SEX: F ORDER DR: [id number] [facility] [address] [place], [place] [address] [id number] I MR#: [id number] Acc #: [id number] NAME: JESSE OLIVO : 1990 SEX: F STUDY DATE/TIME: 01/21/2017 21:20 UNIT: C5 ROOM: [facility] STUDY DESCRIPTION: CR Chest 2 View Attending Physician: Kevin Barrera M.D. Ordering Physician: Justin Negrete M.D. Primary Care Physician: No Primary Care Physician MEDICAL IMAGING REPORT This report is preliminary unless electronic signature is present EXAM Chest, 2 views, dated 01/21/17. COMPARISON Single view chest dated 01/12/17. HISTORY Chest pain, PICC placement on 01/21/17. Drug overdose 18 days ago. FINDINGS Frontal view of the chest was obtained. Previously noted mild right pleural effusion with associated mild atelectasis/infiltrate in the right lateral lower lung zone is redemonstrated. There is a 7 mm right mid lung zone nodule. This is also seen on the prior chest x-ray from 01/12/17. Refer to the CT chest from 01/04/17, which demonstrates noncalcified nodule in this region along the inferior and anterior aspect of the right upper lobe close to the right middle lobe. The minimally calcified left lingular nodule noted on CT chest is difficult to clearly correlate on the current study. Cavitary lesions are also seen on the prior CT chest, which are difficult to correlate on the current study. It could be due to difference in modality or it could be due to interval evolution. Left subclavian approach PICC line catheter tip is in the region past the cavoatrial junction into the right atrium. consider pulling it back by 4-5 cm. and Correlate with tip positioning. Dictated by... Gurjit Dale M.D. [facility] A Service of [facility] RADIOLOGY TEXT RESULTS PATIENT: JESSE OLIVO LOCATION: [place] [address]- : [birth year] UNIT #: [id number] AGE: [address]: Kevin Barrera MD SEX: F ORDER DR: THIS IS AN ELECTRONICALLY VERIFIED REPORT Gurjit Dale M.D. at 01/22/2017 3:00 PM CPR/pc TD: 01/22/2017 06:50 JOB #: [id number] MEDICAL IMAGING REPORT Page 1 of 1 COPY
--- NOTE | ~2017-01-03 | OR ---
Unit #: [id number] #: [id number] Patient: JESSE OLIVO [id number] [address] [place], [place] [address] [id number] I MR#: [id number] NAME: JESSE OLIVO ROOM: [facility] Date of Procedure: 01/05/2017 Admission Date: 01/03/2017 Surgeon: Sanjeev Rodriges Jr., M.D. : 1990 Attending Physician: Cinthia Christensen M.D. Primary Care Physician: Primary Care Physician No OPERATIVE REPORT INDICATION FOR PROCEDURE The patient is a 26-year-old white female, who is a drug abuser, who presented with evidence of wound versus abscess of the left buttock and cellulitis and sepsis. She has been stabilized. Her electrolytes corrected since she was very hyponatremic and she is brought to the operating room at this time for debridement with a #10 blade scalpel of the wound of the left buttock. This was a sharp excisional debridement. PREOPERATIVE DIAGNOSIS Necrotic wound, left buttock. POSTOPERATIVE DIAGNOSIS Necrotic wound, left buttock, noting a fairly superficial wound only down to the superficial subcutaneous tissue. ANESTHESIA General with LMA. PROCEDURE PERFORMED Sharp excisional debridement using #10 blade scalpel of the wound, left buttock. DESCRIPTION OF PROCEDURE The patient was positioned in right lateral decubitus position. After being prepped and draped in routine fashion, she was given general anesthesia and at this point using a #10 blade scalpel, the necrotic tissue was removed sharply from the wound down to the superficial subcutaneous tissue. After all necrotic tissue was removed, hemostasis achieved with Bovie cautery and the wound packed open with saline and moist to dry dressings. Sterile dressings were applied externally. Estimated blood loss less than 10 mL. The patient received less than 1000 mL crystalloid solution during the procedure. Sponges and instruments counts were correct x3. No drains were used. No complications. The patient was taken to the recovery room with stable vital signs in satisfactory condition. Dictated by... Sanjeev Rodriges Jr., M.D. JMB/марина Unit #: [id number] #: [id number] Patient: JESSE OLIVO TD: 01/05/2017 22:34 JOB #: [id number] OPERATIVE REPORT Page 1 of 1 X Sanjeev Rodriges MD PROCEDURE OPERATIVE NOTE
--- NOTE | ~2017-01-03 | CO ---
Unit #: [id number] #: [id number] Patient: JESSE OLIVO [id number] [facility] [address] [place], [place] [address] [id number] I MR#: [id number] NAME: JESSE OLIVO ROOM: 549 Age: 26 Sex: F Admission Date: 01/03/2017 : 1990 Attending Physician: Kevin Barrera M.D. Primary Care Physician: No Primary Care Physician Consultation Date: 01/19/2017 CONSULTATION REPORT REASON FOR CONSULTATION Followup. DISCUSSION Ms. Jesse Olivo is a 26-year-old white female seen in room 549 bed-1 on 01/19/17 at [facility]. Patient reported that she is feeling better after (1) , having a lot of problem with anxiety. Patient reports medication is helping her. Denied any suicidal or homicidal ideation, looking forward to go to [facility] after patient's treatment is complained. Vital signs - 98.6, 95, 22, 137/59. Oxygen concentration 97%. Patient reports sleeping good, no side effects of medications. REVIEW OF SYSTEMS Complete review of systems unremarkable. MENTAL STATUS EXAMINATION GENERAL APPEARANCE: Patient's hygiene and grooming fair. Dressed casually, lying comfortably in bed. Attention span and concentration fair. Speech - regular rate, coherent. Oriented in time, place and person. Mood and affect labile. Thought process coherent. Thought content - patient denied any thoughts of harming self or others or any psychotic symptoms. Recent and remote memory fair. Language - intact. Fund of knowledge fair. Insight and judgment fair to slightly impaired. DIAGNOSIS PSYCHIATRIC: 1. Opiate use disorder, severe - F11.20. 2. Major depressive disorder, recurrent, severe - F33.0 3. Anxiety disorder, not otherwise specified - F40.01. ASSESSMENT/PLAN 1. Supportive psychotherapy and psychoeducation provided to patient. 2. Educated about benefits and side effects of medication and course and prognosis of illness. 3. Advised to continue with current combination of medication with the plan to change Neurontin to 300 mg three times a day. We will continue to follow. Please feel free to call if any questions. Telephone number [phone]. Unit #: [id number] #: [id number] Patient: JESSE OLIVO Dictated by... Sylvia Gilmore/true TD: 01/20/2017 06:10 JOB #: [id number] CONSULTATION REPORT Page 1 of 1 X Fam Medina MD CONSULTATION REPORT
--- NOTE | ~2017-01-03 | HP ---
Unit #: [id number] #: [id number] Patient: JESSE OLIVO [id number] [address] [place], [place] [address] [id number] I MR#: [id number] NAME: JESSE OLIVO ROOM: 325 Age: 26 Sex: F Admission Date: 01/03/2017 : 1990 Attending Physician: Kevin Barrera M.D. Primary Care Physician: No Primary Care Physician HISTORY AND PHYSICAL CHIEF COMPLAINT Fever. Pain all over. Left buttock abscess. DISCUSSION This is a 26-year-old female who has a past medical history of polysubstance abuse, IV heroin abuse, hepatitis C, and hepatitis B. She presented to the emergency room with chief complaining of having fever, not feeling very well, body ache all over and she was found to have left buttock abscess and folliculitis, multiple pustules on the face and she was found to have white count of 13,000, UA consistent with UTI, and sodium 116 and been eventually admitted. She feels sick. She feels generalized body aches, pain all over, cramps all over, and fever. She denied chest pain. She has been having palpitations. No cough. No wheezing. No blood in the stool. No headache. No dizziness. PAST MEDICAL HISTORY 1. History of polysubstance abuse with heroin, marijuana, and methamphetamine. 2. History of hepatitis C and B. 3. 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 4. 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 HOME MEDICATIONS Currently does not take any medications. ALLERGIES No known drug allergies. SOCIAL HISTORY Patient smokes one pack daily. Denies alcohol. She does inject heroin on almost daily basis. She also has history of marijuana in the past and amphetamine also. FAMILY HISTORY Negative for diabetes and coronary artery disease. REVIEW OF SYSTEMS Negative, except as per history of present illness. PHYSICAL EXAMINATION GENERAL APPEARANCE: Young female lying in the bed. She looks sick, older than her age. She is awake, alert, and oriented x3. Comfortable. Not in Unit #: [id number] #: [id number] Patient: JESSE OLIVO distress. VITAL SIGNS: Her vitals are following: Temperature 100.3, heart rate 128, respiratory rate 24, and blood pressure 140/80. HEENT: Pupils equal and reactive to light and accommodation. Head is normocephalic and atraumatic. NECK: Supple. No JVD. HEART: S1 and S2. Regular rate and rhythm, tachycardia. LUNGS: Clear to auscultation. No rhonchi. No wheezing. ABDOMEN: Soft and nontender EXTREMITIES: Inspection normal. No cyanosis, no clubbing, and no edema. SKIN: Left buttock site positive middle area with yellowish-green area surrounded by edema and redness. She has positive multiple skin abrasions and pustules around the face. DIAGNOSTIC STUDIES LABORATORY: Workup is following. BNP was 119. CBC: White count 37,000, hemoglobin 10, hematocrit 32, and platelets 330. Sodium 116, potassium 4.1, chloride 82, glucose 95, BUN 17, and creatinine 0.9. LFTs within normal limits. Lactic acid 1.4. Urine toxicology positive for amphetamine, opiate. UA shows cloudy appearance, 1+ LE, nitrite positive, 3+ protein, and WBC 25-50. IMAGING: Chest x-ray shows moderate sized right pleural effusion. CT of the pelvis (1) is pending at time of dictation, which has been already ordered by emergency room. ASSESSMENT AND PLAN 1. Left buttock abscess, cellulitis, and folliculitis. Will start the patient on IV Zosyn and vancomycin. General surgery, LSA. 2. Leukocytosis. 3. UTI. 4. Hyponatremia. 5. Moderate sized (2) . 6. History of IV heroin abuse (3) at this time. 7. Hepatitis C and B. 8. Tobacco abuse. 9. DVT prophylaxis. Will place the patient on Lovenox. 10. Empirically start the patient on IV Zosyn and vancomycin. Blood cultures. Will get 2D echo to rule out endocarditis. General surgery consult to see. Percocet p.r.n. basis for pain. Zofran and Lovenox for DVT prophylaxis. Dictated by Sylvia Crandall/valdez TD: 01/04/2017 09:44 JOB #: [id number] Unit #: [id number] #: [id number] Patient: GEOVANIJESSE HISTORY AND PHYSICAL Page 1 of 1 X X HISTORY AND PHYSICAL
--- NOTE | ~2017-01-03 | CO ---
Unit #: [id number] #: [id number] Patient: JESSE OLIVO [id number] [address] [address] [id number] I MR#: [id number] NAME: JESSE OLIVO ROOM: 549 Age: 26 Sex: F Admission Date: 01/03/2017 : 1990 Attending Physician: Kevin Barrera M.D. Consultation Date: 01/21/2017 CONSULTATION REPORT DISCUSSION Jesse Olivo is a 26-year-old female, seen on 01/21/2017. The patient reports her anxiety is getting better, decrease in anxiety, mood is getting better. The patient denied any suicidal or homicidal ideation. The patient is overall making progress. The patient denied any suicidal or homicidal ideation. The patient's vital signs; temperature 98.1, pulse 100, respiratory rate 16, blood pressure 113/74, and oxygen saturation 96%. REVIEW OF SYSTEMS Complete review of systems unremarkable. MENTAL STATUS EXAMINATION General appearance; the patient dressed casually in hospital attire, lying comfortably in bed. Attention span and concentration, fair. Speech, regular rate and coherent. Oriented in time, place, and person. Mood and affect, labile. Speech, monotone. Thought process, concrete. The patient denied any thoughts of harming self or others. Recent and remote memory, poor. Insight and judgment, poor. DIAGNOSES 1. Opioid use disorder, severe, F11.20. 2. Major depressive disorder, recurrent, severe, F33.2. ASSESSMENT/PLAN 1. Supportive psychotherapy and psychoeducation provided to the patient. 2. Educated about benefits and side effects of medication and course and prognosis of illness. 3. Advised to continue with current combination of medication. The patient is on a combination of Zyprexa 10 mg at bedtime, Requip 1 mg b.i.d., Neurontin 300 mg t.i.d. p.r.n. If needed, consider further adjustment of medication. Please feel free to call if any questions, telephone #[phone]. Dictated by... Sylvia Gilmore/марина TD: 01/22/2017 23:24 JOB #: [id number] Unit #: [id number] #: [id number] Patient: JESSE OLIVO CONSULTATION REPORT Page 1 of 1 X Fam Medina MD CONSULTATION REPORT
--- NOTE | ~2017-01-03 | A ---
[facility] Nutrition Therapy DATE: 01/13/17 Patient: JESSE GEOVANI Physician: JOAQUIN Address: [address] [place] [address] ROAD Room/Bed: [address] [place] [address], Zip: [place] [address] Admit Date: 01/03/17 Date of : [birth year] Height: 5 1 Weight: 138 62.8 NUTRITIONAL ASSESSMENT: REASON: LOS Dx: PT is 26 y.o. female admitted for abscess left buttock, MRSA, leukoytosis PMH: polysubstance abuse, hepatitis C and B, HPV Anthropometrics: ht: 5'1" wt: 138# (62.7 kg) BMI 26 Labs: Alb 1.6 Meds: vancomycin, zofran, feverall, tylenol, roxicodone, desyrel, percocet, zyprexa, neurotin, mag-sulfate, lovenox I/O & Bowel function: 2640/3153. Last BM 01/12 Skin Integrity: red, scattered abrasions; redness/swelling- feet; open area-buttock, right forearm Assessment: Chart reviewed, events noted. 26 y/o admitted for abscess left buttock. RD automotive internet sales manager spoke with pt at bedside regarding diet and appetite. The pt was very lethargic and weak at time of visit. The pt has been NPO for a procedure but is now back to a regular diet. The pt reports having a good appetite and eating well, both here and at home. She reports eating 50% of her meals yesterday. RD automotive internet sales manager offered to order her supplements and the pt agreed to vanilla magic cup. RD will remain available. Dx: Adequate oral intake r/t good appetite and po intake AEB pt reported intake Intervention: 1. regular diet 2. Magic cup with dinner Monitoring, Evaluation and Goals: 1. Oral intake; tolerate/consume >50% of all meals and supplements. 2. Skin; prevent skin breakdown, promote healing. Recommendations: 1. Magic cup with dinner. 2. Encourage adequate PO intake. RD will f/u per protocol as pt is at mild nutritional risk. [facility] Nutrition Therapy DATE: 01/13/17 Patient: JESSE OLIVO Physician: JOAQUIN Address: [address] [place] [address] ROAD Room/Bed: [address] [place] [address], Zip: [place] [address] Admit Date: 01/03/17 Date of : [birth year] Height: 5 1 Weight: 138 62.8 Respectfully, JONNY HU, engineer intern Janelle Melendrez MS, RD, LD Food and Nutritional Services [facility] cc: client file
--- NOTE | ~2017-01-03 | CO ---
Unit #: [id number] #: [id number] Patient: JESSE OLIVO [id number] [address] [place], [place] [address] [id number] I MR#: [id number] NAME: JESSE OLIVO ROOM: [facility] Age: 26 Sex: F Admission Date: 01/03/2017 : 1990 Attending Physician: Kevin Barrera M.D. Primary Care Physician: No Primary Care Physician CONSULTATION REPORT REASON FOR CONSULTATION Critical care management. CHIEF COMPLAINT 26-year-old female with a past medical history of drug abuse, hepatitis C, Hep-B, presents with a complaint of fever, not feeling well, left buttock abscess and folliculitis, multiple pustules on the face, urinary tract infection, was admitted with impression of sepsis and left buttock cellulitis, leukocytosis, hypernatremia and IV drug abuse. I am seeing the patient at bedside complaining of pain all over. PHYSICAL EXAMINATION VITAL SIGNS: Temperature 98, pulse 87, respirations 12, blood pressure 140/70. NEUROLOGICAL: Awake, alert, oriented. No neuro deficit. HEENT: PERRLA. NECK: Supple. No JVD. CHEST: Bilateral air entry, bilateral mild rhonchi. GI: Nontender, soft. Bowel sounds positive. EXTREMITIES: No edema. SKIN: No rashes, no ulcers. LYMPHATIC: No lymphadenopathy. SKIN: Positive multiple ulcers on the face. DIAGNOSTIC STUDIES LABORATORY: Sodium level is 116. Her white count is 37, hemoglobin 10, hematocrit 32, platelet count is 330. IMAGING: Chest x-ray - right sided effusion. ASSESSMENT AND PLAN 1. Sepsis. 2. Intravenous drug user. 3. Hyponatremia. 4. Cellulitis. 5. Abscess. 6. Critically ill patient. 7. Right sided pleural effusion. Plan is to continue broad spectrum IV antibiotics, hypertonic saline. Continue oxygen, bronchodilator. Right sided thoracentesis. Patient will be closely monitored. Please see orders for detailed plan. Thank you very much for this consultation. We will continue to follow the Unit #: [id number] #: [id number] Patient: JESSE OLIVO patient. Dictated by... Sylvia Thomas TD: 01/04/2017 16:09 JOB #: [id number] CONSULTATION REPORT Page 1 of 1 X Avani Manning MD CONSULTATION REPORT
--- NOTE | ~2017-01-03 | MR163 ---
[facility] A Service of [facility] RADIOLOGY TEXT RESULTS PATIENT: JESSE OLIVO LOCATION: C5B 549-01 : [birth year] UNIT #: [id number] AGE: [address]: Kevin Barrera MD SEX: F ORDER DR: [id number] [facility] [address] [place], [place] [address] [id number] I MR#: [id number] Acc #: [id number] NAME: JESSE OLIVO : 1990 SEX: F STUDY DATE/TIME: 01/13/2017 14:07 UNIT: C5 ROOM: 549 STUDY DESCRIPTION: MR Shoulder WWo Contrast Rt Attending Physician: Kevin Barrera M.D. Ordering Physician: Cinthia Christensen M.D. Primary Care Physician: Primary Care Physician No MRI CENTER REPORT This report is preliminary unless electronic signature is present. EXAM MRI of the right shoulder with and without contrast HISTORY 26-year-old female history of polysubstance abuse to include heroin, marijuana, methamphetamines, hepatitis B and C. Presents with left gluteal abscess and folliculitis. Complains of shoulder pain. TECHNIQUE Multiplanar multiecho imaging was performed of the right shoulder to include axial T1-weighted images following IV gadolinium. FINDINGS Bone structure and alignment is unremarkable. The AC joint appears normal. Minimal glenohumeral joint fluid noted. No marrow edema. There is a partial-thickness bursal-sided tear of the critical zone of the supraspinatus tendon measuring about 1.9 cm medial to lateral by 1.8 cm AP dimension. This is estimated involve about 50% of the thickness of the tendon. There is mild diffuse tendinopathy. The infraspinatus also demonstrates mild tendinopathy. Teres minor and subscapularis tendons appear intact. There is moderate amount of edema and small amount of fluid the subacromial subdeltoid bursa with enhancement of the subacromial-subdeltoid bursa following IV contrast. This would imply an inflammatory process but is nonspecific and may not truly be infectious in etiology. There may be a small amount of fluid in the anterior subacromial-subdeltoid bursa that may be amendable to percutaneous aspiration, but again this represents a very small collection measuring no more than a centimeter in greatest dimension. No muscle atrophy. There is a small amount of edema extending along the supraspinatus and infraspinatus musculature. The superior labrum, biceps anchor and long tendon of the biceps appears intact. Anterior and posterior labrum unremarkable. The deltoid demonstrates a small amount of edema. There [facility] A Service of [facility] RADIOLOGY TEXT RESULTS PATIENT: JESSE OLIVO LOCATION: C5 549-01 : [birth year] UNIT #: [id number] AGE: [address]: Kevin Barrera MD SEX: F ORDER DR: are several mildly prominent axillary lymph nodes, nonspecific in this patient with known chronic infection. IMPRESSION 1. 1.8 x 1.9 cm partial-thickness bursal-sided tear within the critical zone of the supraspinatus tendon superimposed on diffuse tendinopathy. There is also mild infraspinatus tendinopathy. 2. Moderate amount of subacromial-subdeltoid bursal inflammation which enhances postcontrast and a trace amount of fluid in the anterior subacromial-subdeltoid bursa. This could all be reactive due to cuff disease and represent a noninfected bursitis. However in the setting of known systemic infection, infected bursa not excluded. There does appear to be a moderate amount of ruddy muscular edema about both the supraspinatus and infraspinatus muscles but no true myositis identified and no sizeable drainable fluid collections identified. The very small collection in the anterior subacromial-subdeltoid bursa may be amendable to percutaneous aspiration, but again represents a small collection and would be difficult to accurately access. No findings to suggest a glenohumeral joint arthritis either septic or otherwise. Dictated by... John Figueroa M.D. THIS IS AN ELECTRONICALLY VERIFIED REPORT John Figueroa M.D. at 01/13/2017 11:17 PM JARRET/harley TD: 01/13/2017 19:44 JOB #: [id number] MRI CENTER REPORT Page 1 of 1 COPY
--- NOTE | ~2017-01-03 | CT57 ---
[facility] A Service of [facility] RADIOLOGY TEXT RESULTS PATIENT: JESSE OLIVO LOCATION: [facility] 549-01 : [birth year] UNIT #: [id number] AGE: [address]: Kevin Barrera MD SEX: F ORDER DR: [id number] [place] [id number] [facility] [place] [facility]. [place], [place] [address] [id number] I MR#: [id number] Acc #: [id number] NAME: JESSE OLIVO : 1990 SEX: F STUDY DATE/TIME: 01/04/2017 18:28 [facility]: [facility] STUDY DESCRIPTION: CT Chest Wo Cont Attending Physician: Kevin Barrera M.D. Ordering Physician: Justin Negrete M.D. Primary Care Physician: No Primary Care Physician MEDICAL IMAGING REPORT This report is preliminary unless electronic signature is present EXAM Chest CT no contrast 01/04/2017 HISTORY History of IV drug abuse and suspected sepsis. There is a right pleural effusion and a chest tube was placed today. There is concern about possible pulmonary abscess. PROCEDURE This CT exam was performed with one or more of the following radiation dose reduction techniques: automatic control, adjustment of mA and/or kV according to patient size, and iterative reconstruction. FINDINGS There is a right chest tube in place. There is a right small basilar pneumothorax. There is minimal right basilar dependent atelectasis or less likely infiltrate. There is a small somewhat nodular parenchymal opacity in the left lateral lung base about 12 to 13 mm in size and a similar lesion in the peripheral right middle lobe about 10 mm in size. There is additional lesions in the left lung which appear more cystic in the upper portion of the lower lobe and in the lower portion of the upper lobe all 10-12 mm in size. There are no prior CT chest exam for comparison. Findings certainly are suspicious for small septic emboli. Heart size is normal. Images of the upper abdomen are markedly abnormal with parenchymal renal wedge shaped opacities which could simply represent changes of renal infarction but could also indicate the possibility of septic renal emboli. IMPRESSION [facility] A Service of [facility] RADIOLOGY TEXT RESULTS PATIENT: JESSE OLIVO LOCATION: [facility] 549- : [birth year] UNIT #: [id number] AGE: [address]: Kevin Barrera MD SEX: F ORDER DR: 1. Small cystic lesions in the left lung greater than right suspicious for small septic emboli. There is a right small pleural effusion basilar parenchymal opacity that is likely atelectasis and a small right basilar pneumothorax with a right chest tube in place. 2. Small hyperdensities in both kidneys somewhat ring-like appearance question relationship to septic emboli versus some other insult. 3. No left effusion or pneumothorax. Dictated by... Ten Chester M.D. THIS IS AN ELECTRONICALLY VERIFIED REPORT Ten Chester M.D. at 01/14/2017 4:02 PM CALEB/macy TD: 01/05/2017 03:59 JOB #: [id number] MEDICAL IMAGING REPORT Page 1 of 1 COPY
--- NOTE | ~2017-01-03 | CO ---
Unit #: [id number] #: [id number] Patient: JESSE OLIVO [id number] [facility] [address] [facility]. [place], [place] [address] [id number] I MR#: [id number] NAME: JESSE OLIVO ROOM: 549 Age: 26 Sex: F Admission Date: 01/03/2017 : 1990 Attending Physician: Kevin Barrera M.D. Consultation Date: 01/17/2017 CONSULTATION REPORT REASON FOR CONSULTATION Followup. DISCUSSION Ms. Jesse Olivo is a 26-year-old female, seen on 01/17/2017 in room 549, bed 1 at [facility]. The patient is compliant, cooperative, lying comfortably in bed. Mood is sad, dysphoric, flat affect, but denied any thoughts of harming self or others. The patient reported anxiety and depression is better. Denied any suicidal or homicidal ideation. The patient's vital signs; temperature 98.4, pulse 105, respirations 18, blood pressure 101/63, and oxygen saturation 95%. The patient reports looking forward to be discharged soon possibly going to [facility], where she can continue with her IV treatment as well as for rehab. The patient still waiting for the final culture report. REVIEW OF SYSTEMS Complete review of systems unremarkable. MENTAL STATUS EXAMINATION Vital signs; temperature 98.4, pulse 105, respirations 18, blood pressure 101/63, and oxygen saturation 97%. General appearance; the patient dressed in hospital attire, lying comfortably in bed. Attention span and concentration, fair. Oriented in time, place, and person. Mood and affect, sad and dysphoric. Speech, monotone. Thought process, concrete. The patient denied any thoughts of harming self or others. Recent and remote memory, fair. Language, intact. Fund of knowledge, fair. Insight and judgment, fair to slightly impaired. DIAGNOSES Psychiatric: Opioid use disorder, severe, F11.20; major depressive disorder, recurrent, severe, F33.2. ASSESSMENT/PLAN 1. Supportive psychotherapy and psychoeducation provided to the patient. 2. Educated about benefits and side effects of medication and course and prognosis of illness. 3. Advised to continue with current medication combination. If needed, consider further adjustment of medication. Please feel free to call if any questions, telephone #[phone]. Dictated by... Fam Medina M.D. Unit #: [id number] #: [id number] Patient: JESSE OLIVO MICAH/марина TD: 01/17/2017 22:44 JOB #: [id number] CONSULTATION REPORT Page 1 of 1 X Fam Medina MD CONSULTATION REPORT
--- NOTE | ~2017-01-03 | XA47 ---
[facility]. [facility] A Service of [facility] RADIOLOGY TEXT RESULTS PATIENT: JESSE OLIVO LOCATION: [facility] 549-01 : [birth year] UNIT #: [id number] AGE: [address]: Kevin Barrera MD SEX: F ORDER DR: [id number] [place] [id number] [facility]. [place], [place] [address] [id number] I MR#: [id number] Acc #: [id number] NAME: JESSE OLIVO : 1990 SEX: F STUDY DATE/TIME: 01/13/2017 10:11 UNIT: C5 ROOM: [facility] STUDY DESCRIPTION: XA Aspiration Cyst/Abscess/Hem Attending Physician: Kevin Barrera M.D. Ordering Physician: Cinthia Christensen M.D. Primary Care Physician: Primary Care Physician No MEDICAL IMAGING REPORT This report is preliminary unless electronic signature is present PROCEDURE Ultrasound-guided left calf abscess aspiration. INDICATIONS 26-year-old female with history of multiple prior abscesses. She has pain and tenderness in the region of her left calf and an underlying abscess was suspected. The risks, benefits and alternatives of the procedure were discussed with the patient and an informed consent was obtained. In the procedure room, a time-out was performed confirming correct patient and procedure. All elements of maximum sterile-barrier technique utilized according to guidelines appropriate for the procedure. TECHNIQUE/FINDINGS Correlation is made with an ultrasound from 01/10/2017. The area of pain was ultrasounded and an underlying small fluid collection was identified, similar to the collection on the previous ultrasound. The overlying skin was prepped and draped in the usual sterile fashion, 1% lidocaine utilized to anesthetize the skin and underlying subcutaneous tissues. Next, under direct ultrasound guidance, a 22-gauge needle was advanced into the collection and approximately 2 mL of purulent fluid was able to be aspirated and it was sent for culture. The needle was removed and a sterile dressing was applied. No immediate complications. IMPRESSION Technically successful ultrasound-guided aspiration of a small abscess in the left calf. Dictated by... Henry Figueroa M.D. [facility] A Service of [facility] RADIOLOGY TEXT RESULTS PATIENT: JESSE OLIVO LOCATION: C5B 549-01 : [birth year] UNIT #: [id number] AGE: [address]: Kevin Barrera MD SEX: F ORDER DR: THIS IS AN ELECTRONICALLY VERIFIED REPORT Henry Figueroa M.D. at 01/14/2017 10:06 AM MARITZA/john TD: 01/13/2017 22:00 JOB #: [id number] MEDICAL IMAGING REPORT Page 1 of 1 COPY
--- NOTE | ~2017-01-03 | CR72 ---
[facility] A Service of [facility] & [facility] RADIOLOGY TEXT RESULTS PATIENT: JESSE OLIVO LOCATION: [place] [address]- : [birth year] UNIT #: [id number] AGE: [address]: Cinthia Christensen MD SEX: F ORDER DR: [id number] [facility] [address] [facility]. [place], [place] [address] [id number] I MR#: [id number] Acc #: [id number] NAME: JESSE OLIVO : 1990 SEX: F STUDY DATE/TIME: 01/06/2017 6:32 UNIT: [facility] ROOM: [facility] STUDY DESCRIPTION: CR Chest Single View Portable Attending Physician: Cinthia Christensen M.D. Ordering Physician: Avani Manning M.D. Primary Care Physician: No Primary Care Physician MEDICAL IMAGING REPORT This report is preliminary unless electronic signature is present EXAM Portable chest. HISTORY Fever, palpitations, body aches, history of IV drug abuse, soft tissue abscess. COMPARISON 01/05/17 FINDINGS Large bore right chest tube and left neck approach central line remain in satisfactory position unchanged. No significant change in cardiopulmonary status. Continued right-sided volume loss with elevation of the right hemidiaphragm. Right basilar atelectasis and/or infiltrate. Left lung remains clear. Probable small amount of right pleural fluid but no sizeable effusion. There may be a trace amount of air in the right lung base but no sizeable pneumothorax. A small amount of subcutaneous emphysema noted. Heart, mediastinum unremarkable. Dictated by... John Figueroa M.D. THIS IS AN ELECTRONICALLY VERIFIED REPORT John Figueroa M.D. at 01/06/2017 3:55 PM JARRET/ruby TD: 01/06/2017 10:25 JOB #: [id number] MEDICAL IMAGING REPORT Page 1 of 1 COPY
--- NOTE | ~2017-01-03 | CO ---
Unit #: [id number] #: [id number] Patient: JESSE OLIVO [id number] [address] [address] [id number] I MR#: [id number] NAME: JESSE OLIVO ROOM: 549 Age: 26 Sex: F Admission Date: 01/03/2017 : 1990 Attending Physician: Cinthia Christensen M.D. Consultation Date: 01/05/2017 CONSULTATION REPORT REASON FOR CONSULTATION Followup. DISCUSSION Ms. Jesse Olivo is a 26-year-old female, seen in CCU-3, bed 14 on 01/05/2017. The patient is compliant and cooperative, anxious, sad, dysphoric mood. The patient denied any current suicidal or homicidal ideation. Denied any psychotic symptom. Cooperative, but reported feeling sad, depressed, and anxious. The patient admitted using multiple drugs. The patient's urine drug screen was positive for amphetamine and opiates. The patient has multiple cuts on her face as well as on her body. Abscesses, positive for MRSA. Possible endocarditis. REVIEW OF SYSTEMS Complete review of system is unremarkable. MENTAL STATUS EXAMINATION Vital signs are pulse 101, respirations 22, blood pressure 100/84, and oxygen saturation 100%. General appearance; the patient dressed in hospital attire, lying comfortably in bed. Attention span and concentration, fair. Speech, slow in volume. Oriented in time, place, and person. Mood and affect, labile. Thought process, circumstantial. The patient denied any thoughts of harming self or others. Recent and remote memory, fair. Language, intact. Fund of knowledge, fair. Insight and judgment, fair to poor. DIAGNOSES Psychiatric: 1. Opioid use disorder, severe, F11.20. 2. Amphetamine use disorder, severe, F15.20. 3. Major depressive disorder, recurrent, F33.2. ASSESSMENT/PLAN 1. Supportive psychotherapy and psychoeducation provided to the patient. 2. Educated about benefits and side effects of medication and course and prognosis of illness. 3. If needed, consider medication for depression and withdrawal symptom. At this time, the patient denied any. We will continue to follow. Please feel free to call if any question, telephone #[phone]. Dictated by... Fam Medina M.D. Unit #: [id number] #: [id number] Patient: JESSE OLIVO MICAH/марина TD: 01/07/2017 02:15 JOB #: [id number] CONSULTATION REPORT Page 1 of 1 X Fam Medina MD CONSULTATION REPORT
--- NOTE | ~2017-01-03 | CO ---
Unit #: [id number] #: [id number] Patient: JESSE OLIVO [id number] [facility] [address] [place], [place] [address] [id number] I MR#: [id number] NAME: JESSE OLIVO ROOM: 549 Age: 26 Sex: F Admission Date: 01/03/2017 : 1990 Attending Physician: Cinthia Christensen M.D. Primary Care Physician: Primary Care Physician No Consultation Date: 01/11/2017 CONSULTATION REPORT DISCUSSION Ms. Jesse Olivo is a 26-year-old white female, seen in room 549, bed 1 on 01/11/2017. The patient dressed casually, lying comfortably in bed. The patient was seen at [facility]. The patient reports that she is sick and tired of being in the hospital and the hospital food, somewhat anxious, nervous, sad, and depressed, but denied any thoughts of harming self or others. Compliant with the treatment. The patient reports medication is helping with anxiety and sleep. REVIEW OF SYSTEMS Complete review of systems is unremarkable. MENTAL STATUS EXAMINATION Vital signs; temperature 98.4, pulse 113, respirations 20, blood pressure 134/95, and oxygen saturation 100%. General appearance; the patient is moderately obese, dressed casually in street clothes. Attention span and concentration, fair. Speech, regular rate and coherent. Mood and affect were sad, dysphoric, irritable. Thought process, coherent. Thought content, the patient denied any thoughts of harming self or others or any psychotic symptom. Recent and remote memory, fair. Language, intact. Fund of knowledge, fair. Insight and judgment, fair to slightly impaired. DIAGNOSES Psychiatric: Opioid use disorder, severe, F11.20; major depressive disorder, recurrent, severe, F33.2. ASSESSMENT/PLAN 1. Supportive psychotherapy and psychoeducation provided to the patient. 2. Educated about benefits and side effects of medication and course and prognosis of illness. 3. Advised to continue with current combination of medication. If needed, consider further adjustment of medication. Please feel free to call if any questions, telephone #[phone]. Dictated by... Fam Medina M.D. MICHA/марина TD: 01/12/2017 08:22 JOB #: [id number] Unit #: [id number] #: [id number] Patient: JESSE OLIVO CONSULTATION REPORT Page 1 of 1 X Fam Medina MD CONSULTATION REPORT
--- NOTE | ~2017-01-03 | CR72 ---
[facility] A Service of [facility] & [facility] RADIOLOGY TEXT RESULTS PATIENT: JESSE OLIVO LOCATION: C5B 549-01 : [birth year] UNIT #: [id number] AGE: [address]: Kevin Barrera MD SEX: F ORDER DR: [id number] [facility] [address] [place], [place] [address] [id number] I MR#: [id number] Acc #: [id number] NAME: JESSE OLIVO : 1990 SEX: F STUDY DATE/TIME: 01/11/2017 6:05 UNIT: C5B ROOM: [facility] STUDY DESCRIPTION: CR Chest Single View Portable Attending Physician: Cinthia Christensen M.D. Ordering Physician: Cinthia Christensen M.D. Primary Care Physician: No Primary Care Physician MEDICAL IMAGING REPORT This report is preliminary unless electronic signature is present EXAM Portable AP view of the chest. COMPARISON January 10, 2017, and January 06, 2017. INDICATIONS 18-year-old female with dyspnea and fever for 7 days. Right chest tube removal today. FINDINGS AND IMPRESSION There has been interval removal of a right chest tube. No appreciable pneumothorax is seen. There is stable right basilar atelectasis versus less likely pneumonia. There is likely trace stable right pleural effusion. Nodular opacities seen in the right lung base and in the left midlung field are stable, likely infectious in nature. Some of these are noted to be cavitating on CT of January 04, 2017. Given history of IV drug use, these probably reflect septic pulmonary emboli. Imaging followup to ensure resolution is recommended. Normal heart size. Left internal jugular catheter is grossly stable terminating in the right atrium. Correlation for signs of ectopy recommended. One could consider retraction by approximately 4 cm. Dictated by... Valeriy Weiss M.D. THIS IS AN ELECTRONICALLY VERIFIED REPORT Valeriy Weiss M.D. at 01/16/2017 7:35 PM BLM/pc TD: 01/11/2017 10:22 JOB #: [id number] [facility] A Service of [facility] & [facility] RADIOLOGY TEXT RESULTS PATIENT: JESSE OLIVO LOCATION: [place] [address]- : [birth year] UNIT #: [id number] AGE: [address]: Kevin Barrera MD SEX: F ORDER DR: MEDICAL IMAGING REPORT Page 1 of 1 COPY
[~2017-01-03 17:52] MED LIST: AUGMENTIN875 M1 PO; BACTRIM DS TABL1 TA1 PO; BACTROBAN22 GM TP; CLINDAMYCIN PO; FLAGYL PO; KEFLEX500 M1 PO; LORTAB 5-325 M1 EACH PO; NICOTINE TRANSD21 MG EXT; NO MEDICATIONS
[2017-01-03 19:19] LABS: URINE SOURCE CLEAN CATCH
[2017-01-03 19:35] LABS: URINE APPEARANCE CLOUDY; URINE BILIRUBIN NEG (NEG); URINE BLOOD 3+ (NEG); URINE COLOR DK YELLOW; URINE GLUCOSE NEG (NEG); URINE KETONE TRACE (NEG); URINE LEUKOCYTE ESTERASE 1+ (NEG); URINE NITRATE POS (NEG); URINE PH 5.5 (5-8); URINE PROTEIN 3+ (NEG); URINE SPECIFIC GRAVITY 1.019 (1.003-1.035)
[2017-01-03 19:37] LABS: CULTURE INDICATED? YES; URINE BACTERIA AUWI 4+ (NEGATIVE); URINE SQUAMOUS EPITHELIAL CELL FEW /[HPF]; UWBCS1 AUWI 25-50 (0-5)
[2017-01-03 19:54] LABS: AMPHETAMINE POS (NEG); BARBITURATES NEG (NEG); BENZODIAZEPINES NEG (NEG); COCAINE NEG (NEG); MARIJUANA NEG (NEG); OPIATES POS (NEG); TRICYCLIC ANTIDEPRESSANTS NEG (NEG); U METHADONE NEG (NEG)
[2017-01-03 20:22] LABS: BASOPHIL# 0.1 X10e3 (0-0.3); BASOPHIL% 0.3 % (0-2.5); EOSINOPHIL# 0.1 X10e3 (0-0.7); EOSINOPHIL% 0.2 % (0.0-7.0); HEMATOCRIT 32.3 % (35.0-45.0); HEMOGLOBIN 10.9 gm/dL (12.0-16.0); LYMPHOCYTE# 1.5 X10e3 (1.0-3.5); MEAN CELL VOLUME 83.6 FL (83-96); MEAN CORPUSCULAR HEMOGLOBIN 28.3 PG (28-34); MEAN CORPUSCULAR HGB CONC 33.8 g/dL (30-36); MEAN PLATELET VOLUME 9.6 FL (6.5-11.5); MONOCYTE% 5.4 % (3.0-12.0); NEUTROPHIL# 33.8 X10e3 (1.5-7.1); NEUTROPHIL% 90.1 % (40-75); PLATELET COUNT 330 X10e3 (140-420); RED BLOOD COUNT 3.86 X10e (3.90-5.30); RED CELL DISTRIBUTION WIDTH 13.9 % (11.0-15.5); WHITE BLOOD COUNT 37.5 X10e3 (4.0-10.5)
[2017-01-03 20:23] LABS: DIFF IND YES
[2017-01-03 20:42] LABS: ALBUMIN SERUM 2.2 g/dL (3.5-5.0); BILIRUBIN, DIRECT 0.5 mg/dL (0.0-0.2); BILIRUBIN,INDIRECT 1.1 mg/dL (0.0-0.9); BILIRUBIN,TOTAL 1.6 mg/dL (0.2-2.0); BUN/CREATININE RATIO 18.88; CALCIUM SERUM 7.7 mg/dL (8.4-10.2); CREATININE SERUM 0.9 mg/dL (0.6-1.4); GLOM FILT RATE Estimated 87.1 mL/min (>60); POTASSIUM 4.1 mmol/L (3.5-5.1)
[2017-01-03 20:45] LABS: PLATELET ESTIMATE NORMAL (NORMAL)
[2017-01-03 20:46] LABS: ANISOCYTOSIS SL
[2017-01-04 15:10] LABS: CREATININE,RANDOM URINE 89 mg/dL; TOTAL PROTEIN,RANDOM URINE 116 mg/dl (<10)
[2017-01-04 15:11] LABS: SODIUM URINE RANDOM <10 mmol/L
[2017-01-04 15:14] LABS: OSMOLALITY,URINE 442 mOsmo/kg (250-900)
[2017-01-04 16:53] LABS: BASOPHIL% 0.2 % (0-2.5); DIFF IND NO; EOSINOPHIL# 0.1 X10e3 (0-0.7); EOSINOPHIL% 0.3 % (0.0-7.0); HEMATOCRIT 31.2 % (35.0-45.0); HEMOGLOBIN 10.1 gm/dL (12.0-16.0); LYMPHOCYTE# 1.7 X10e3 (1.0-3.5); LYMPHOCYTE% 6.8 % (17.0-45.0); MEAN CELL VOLUME 85.2 FL (83-96); MEAN CORPUSCULAR HEMOGLOBIN 27.6 PG (28-34); MEAN CORPUSCULAR HGB CONC 32.4 g/dL (30-36); MEAN PLATELET VOLUME 8.7 FL (6.5-11.5); MONOCYTE% 4.2 % (3.0-12.0); NEUTROPHIL# 21.8 X10e3 (1.5-7.1); NEUTROPHIL% 88.5 % (40-75); PLATELET COUNT 321 X10e3 (140-420); RED BLOOD COUNT 3.66 X10e (3.90-5.30); RED CELL DISTRIBUTION WIDTH 14.7 % (11.0-15.5); WHITE BLOOD COUNT 24.7 X10e3 (4.0-10.5)
[2017-01-04 17:42] LABS: ALBUMIN SERUM 1.9 g/dL (3.5-5.0); BILIRUBIN,TOTAL 1.2 mg/dL (0.2-2.0); CALCIUM SERUM 7.4 mg/dL (8.4-10.2); CREATININE SERUM 0.7 mg/dL (0.6-1.4); GLOM FILT RATE Estimated 117.9 mL/min (>60); MAGNESIUM 2.3 mg/dL (1.6-3.0); PHOSPHOROUS 2.2 mg/dL (2.5-4.6); POTASSIUM 3.4 mmol/L (3.5-5.1); PROTEIN TOTAL SERUM 6.4 g/dL (6.0-8.3); URIC ACID 2.1 mg/dL (2.6-7.2)
[2017-01-04 19:05] LABS: BODY FLUID APPEARANCE BLOODY; BODY FLUID SOURCE PLEURAL
[2017-01-04 19:12] LABS: PROTEIN, BODY FLUID 4.7 gm/dL
[2017-01-04 21:20] LABS: BUN/CREATININE RATIO 18.57; CALCIUM SERUM 7.4 mg/dL (8.4-10.2); CREATININE SERUM 0.7 mg/dL (0.6-1.4); GLOM FILT RATE Estimated 117.9 mL/min (>60); POTASSIUM 3.5 mmol/L (3.5-5.1)
[2017-01-05 04:46] LABS: ARTERIAL BLOOD GAS PO2 90.6 mmHg (80.0-100); ARTERIAL BLOOD GAS pH 7.508 (7.350-7.450)
[2017-01-05 04:47] LABS: ARTERIAL BLD GAS O2 SATURATION 98.2 % (90.0-100.0); ARTERIAL BLOOD GAS ALLEN TEST NORMAL; ARTERIAL BLOOD GAS ART SITE RIGHT RADIAL; ARTERIAL BLOOD GAS CARBOXY HB 0.7 %sat (0.0-9.0); ARTERIAL BLOOD GAS DELIVERY ROOM AIR; ARTERIAL DRAW? YES
[2017-01-05 05:42] LABS: BASOPHIL% 0.2 % (0-2.5); HEMATOCRIT 29.2 % (35.0-45.0); HEMOGLOBIN 9.6 gm/dL (12.0-16.0); LYMPHOCYTE# 1.6 X10e3 (1.0-3.5); LYMPHOCYTE% 7.3 % (17.0-45.0); MEAN CELL VOLUME 85.2 FL (83-96); MEAN CORPUSCULAR HEMOGLOBIN 28.1 PG (28-34); MEAN PLATELET VOLUME 8.9 FL (6.5-11.5); MONOCYTE# 1.1 X10e3 (0-1.0); NEUTROPHIL# 19.1 X10e3 (1.5-7.1); NEUTROPHIL% 87.5 % (40-75); PLATELET COUNT 323 X10e3 (140-420); RED BLOOD COUNT 3.42 X10e (3.90-5.30); RED CELL DISTRIBUTION WIDTH 14.6 % (11.0-15.5); WHITE BLOOD COUNT 21.8 X10e3 (4.0-10.5)
[2017-01-05 05:46] LABS: DIFF IND NO
[2017-01-05 06:19] LABS: ALBUMIN SERUM 1.7 g/dL (3.5-5.0); BILIRUBIN,TOTAL 0.8 mg/dL (0.2-2.0); BUN/CREATININE RATIO 14.28; CALCIUM SERUM 7.2 mg/dL (8.4-10.2); CREATININE SERUM 0.7 mg/dL (0.6-1.4); GLOM FILT RATE Estimated 117.9 mL/min (>60); MAGNESIUM 1.9 mg/dL (1.6-3.0); PHOSPHOROUS 2.7 mg/dL (2.5-4.6); PROTEIN TOTAL SERUM 5.8 g/dL (6.0-8.3)
[2017-01-06 02:17] LABS: BASOPHIL% 0.1 % (0-2.5); DIFF IND NO; EOSINOPHIL% 0.1 % (0.0-7.0); HEMATOCRIT 28.3 % (35.0-45.0); HEMOGLOBIN 9.3 gm/dL (12.0-16.0); LYMPHOCYTE# 2.1 X10e3 (1.0-3.5); LYMPHOCYTE% 10.9 % (17.0-45.0); MEAN CELL VOLUME 85.3 FL (83-96); MEAN CORPUSCULAR HEMOGLOBIN 27.9 PG (28-34); MEAN CORPUSCULAR HGB CONC 32.7 g/dL (30-36); MEAN PLATELET VOLUME 8.1 FL (6.5-11.5); MONOCYTE# 0.9 X10e3 (0-1.0); MONOCYTE% 4.5 % (3.0-12.0); NEUTROPHIL# 16.5 X10e3 (1.5-7.1); NEUTROPHIL% 84.4 % (40-75); PLATELET COUNT 345 X10e3 (140-420); RED BLOOD COUNT 3.32 X10e (3.90-5.30); RED CELL DISTRIBUTION WIDTH 14.5 % (11.0-15.5); WHITE BLOOD COUNT 19.6 X10e3 (4.0-10.5)
[2017-01-06 02:32] LABS: ALBUMIN SERUM 1.4 g/dL (3.5-5.0); BILIRUBIN,TOTAL 0.5 mg/dL (0.2-2.0); CALCIUM SERUM 6.8 mg/dL (8.4-10.2); CREATININE SERUM 0.5 mg/dL (0.6-1.4); GLOM FILT RATE Estimated 131.7 mL/min (>60); MAGNESIUM 1.8 mg/dL (1.6-3.0); POTASSIUM 4.2 mmol/L (3.5-5.1); PROTEIN TOTAL SERUM 5.6 g/dL (6.0-8.3)
[2017-01-06 04:43] LABS: ARTERIAL BLOOD GAS ALLEN TEST NORMAL; ARTERIAL BLOOD GAS ART SITE RIGHT RADIAL; ARTERIAL BLOOD GAS CARBOXY HB 1.1 %sat (0.0-9.0); ARTERIAL BLOOD GAS DELIVERY ROOM AIR; ARTERIAL BLOOD GAS HCO3 21.4 mmol/L; ARTERIAL BLOOD GAS MET HB 0.8 %sat (0.0-2.0); ARTERIAL BLOOD GAS PCO2 28.3 mmHg (35.0-45.0); ARTERIAL BLOOD GAS PO2 77.1 mmHg (80.0-100); ARTERIAL BLOOD GAS pH 7.488 (7.350-7.450); ARTERIAL DRAW? YES
[2017-01-07 07:00] LABS: HEMOGLOBIN 8.3 gm/dL (12.0-16.0); MEAN CELL VOLUME 85.7 FL (83-96); MEAN CORPUSCULAR HEMOGLOBIN 28.3 PG (28-34); MEAN CORPUSCULAR HGB CONC 33.1 g/dL (30-36); MEAN PLATELET VOLUME 8.1 FL (6.5-11.5); RED BLOOD COUNT 2.92 X10e (3.90-5.30); RED CELL DISTRIBUTION WIDTH 14.8 % (11.0-15.5); WHITE BLOOD COUNT 18.2 X10e3 (4.0-10.5)
[2017-01-07 07:33] LABS: BUN/CREATININE RATIO 8.33; CALCIUM SERUM 6.9 mg/dL (8.4-10.2); CREATININE SERUM 0.6 mg/dL (0.6-1.4); POTASSIUM 3.6 mmol/L (3.5-5.1)
[2017-01-08 05:39] LABS: HEMATOCRIT 24.9 % (35.0-45.0); HEMOGLOBIN 8.2 gm/dL (12.0-16.0); MEAN CELL VOLUME 85.2 FL (83-96); MEAN CORPUSCULAR HGB CONC 32.8 g/dL (30-36); MEAN PLATELET VOLUME 7.6 FL (6.5-11.5); RED BLOOD COUNT 2.93 X10e (3.90-5.30); RED CELL DISTRIBUTION WIDTH 14.3 % (11.0-15.5); WHITE BLOOD COUNT 18.5 X10e3 (4.0-10.5)
[2017-01-08 06:13] LABS: ALBUMIN SERUM 1.5 g/dL (3.5-5.0); BILIRUBIN,TOTAL 0.3 mg/dL (0.2-2.0); CALCIUM SERUM 7.7 mg/dL (8.4-10.2); CREATININE SERUM 0.5 mg/dL (0.6-1.4); GLOM FILT RATE Estimated 131.7 mL/min (>60); MAGNESIUM 1.7 mg/dL (1.6-3.0); PHOSPHOROUS 2.8 mg/dL (2.5-4.6); POTASSIUM 3.9 mmol/L (3.5-5.1)
[2017-01-08 07:52] LABS: COMPLEMENT C3 112 mg/dL (90-180); COMPLEMENT C4 4 mg/dL (16-47)
[2017-01-08 20:20] LABS: ARTERIAL BLD GAS O2 SATURATION 98.2 % (90.0-100.0); ARTERIAL BLOOD GAS ALLEN TEST NORMAL; ARTERIAL BLOOD GAS ART SITE RIGHT RADIAL; ARTERIAL BLOOD GAS HCO3 22.7 mmol/L; ARTERIAL BLOOD GAS MET HB 0.7 %sat (0.0-2.0); ARTERIAL BLOOD GAS PCO2 28.6 mmHg (35.0-45.0); ARTERIAL BLOOD GAS PO2 88.2 mmHg (80.0-100); ARTERIAL BLOOD GAS pH 7.508 (7.350-7.450); ARTERIAL DRAW? YES
[2017-01-09 05:36] LABS: HEMATOCRIT 24.4 % (35.0-45.0); HEMOGLOBIN 7.9 gm/dL (12.0-16.0); MEAN CELL VOLUME 86.2 FL (83-96); MEAN CORPUSCULAR HEMOGLOBIN 27.9 PG (28-34); MEAN CORPUSCULAR HGB CONC 32.4 g/dL (30-36); MEAN PLATELET VOLUME 7.7 FL (6.5-11.5); RED BLOOD COUNT 2.83 X10e (3.90-5.30); RED CELL DISTRIBUTION WIDTH 14.4 % (11.0-15.5); WHITE BLOOD COUNT 11.9 X10e3 (4.0-10.5)
[2017-01-09 06:35] LABS: ALBUMIN SERUM 1.4 g/dL (3.5-5.0); BILIRUBIN,TOTAL 0.1 mg/dL (0.2-2.0); CALCIUM SERUM 7.8 mg/dL (8.4-10.2); CREATININE SERUM 0.6 mg/dL (0.6-1.4); POTASSIUM 4.1 mmol/L (3.5-5.1); PROTEIN TOTAL SERUM 6.1 g/dL (6.0-8.3)
[2017-01-10 06:12] LABS: HEMATOCRIT 24.1 % (35.0-45.0); HEMOGLOBIN 7.8 gm/dL (12.0-16.0); MEAN CELL VOLUME 86.5 FL (83-96); MEAN CORPUSCULAR HEMOGLOBIN 27.9 PG (28-34); MEAN CORPUSCULAR HGB CONC 32.2 g/dL (30-36); MEAN PLATELET VOLUME 7.5 FL (6.5-11.5); RED BLOOD COUNT 2.79 X10e (3.90-5.30); RED CELL DISTRIBUTION WIDTH 14.8 % (11.0-15.5); WHITE BLOOD COUNT 11.9 X10e3 (4.0-10.5)
[2017-01-10 06:51] LABS: ALBUMIN SERUM 1.5 g/dL (3.5-5.0); BILIRUBIN,TOTAL 0.6 mg/dL (0.2-2.0); BUN/CREATININE RATIO 11.66; CREATININE SERUM 0.6 mg/dL (0.6-1.4); MAGNESIUM 1.8 mg/dL (1.6-3.0); POTASSIUM 4.4 mmol/L (3.5-5.1); PROTEIN TOTAL SERUM 6.3 g/dL (6.0-8.3)
[2017-01-11 05:25] LABS: HEMATOCRIT 23.2 % (35.0-45.0); HEMOGLOBIN 7.5 gm/dL (12.0-16.0); MEAN CELL VOLUME 87.4 FL (83-96); MEAN CORPUSCULAR HEMOGLOBIN 28.1 PG (28-34); MEAN CORPUSCULAR HGB CONC 32.2 g/dL (30-36); MEAN PLATELET VOLUME 7.5 FL (6.5-11.5); RED BLOOD COUNT 2.65 X10e (3.90-5.30); RED CELL DISTRIBUTION WIDTH 14.8 % (11.0-15.5); WHITE BLOOD COUNT 11.1 X10e3 (4.0-10.5)
[2017-01-11 05:49] LABS: ALBUMIN SERUM 1.6 g/dL (3.5-5.0); BILIRUBIN,TOTAL 0.5 mg/dL (0.2-2.0); BUN/CREATININE RATIO 11.42; CALCIUM SERUM 7.8 mg/dL (8.4-10.2); CREATININE SERUM 0.7 mg/dL (0.6-1.4); GLOM FILT RATE Estimated 117.9 mL/min (>60); POTASSIUM 3.5 mmol/L (3.5-5.1); PROTEIN TOTAL SERUM 6.6 g/dL (6.0-8.3)
[2017-01-12 06:39] LABS: HEMATOCRIT 23.3 % (35.0-45.0); HEMOGLOBIN 7.6 gm/dL (12.0-16.0); MEAN CELL VOLUME 88.3 FL (83-96); MEAN CORPUSCULAR HGB CONC 32.8 g/dL (30-36); MEAN PLATELET VOLUME 7.6 FL (6.5-11.5); RED BLOOD COUNT 2.63 X10e (3.90-5.30); RED CELL DISTRIBUTION WIDTH 14.8 % (11.0-15.5); WHITE BLOOD COUNT 11.6 X10e3 (4.0-10.5)
[2017-01-12 07:25] LABS: BUN/CREATININE RATIO 13.33; CALCIUM SERUM 8.3 mg/dL (8.4-10.2); CREATININE SERUM 0.6 mg/dL (0.6-1.4); MAGNESIUM 1.9 mg/dL (1.6-3.0)
[2017-01-13 05:39] LABS: HEMATOCRIT 24.9 % (35.0-45.0); HEMOGLOBIN 8.1 gm/dL (12.0-16.0); MEAN CELL VOLUME 86.7 FL (83-96); MEAN CORPUSCULAR HEMOGLOBIN 28.1 PG (28-34); MEAN CORPUSCULAR HGB CONC 32.4 g/dL (30-36); MEAN PLATELET VOLUME 7.4 FL (6.5-11.5); RED BLOOD COUNT 2.88 X10e (3.90-5.30); WHITE BLOOD COUNT 12.9 X10e3 (4.0-10.5)
[2017-01-13 06:04] LABS: CALCIUM SERUM 8.8 mg/dL (8.4-10.2); CREATININE SERUM 0.6 mg/dL (0.6-1.4); MAGNESIUM 1.8 mg/dL (1.6-3.0); POTASSIUM 4.1 mmol/L (3.5-5.1)
[2017-01-13 09:27] LABS: INR 1.2; PARTIAL THROMBOPLASTIN TIME 28.1 SECONDS (23.5-31.3); PROTHROMBIN TIME (PATIENT) 12.7 SECONDS (10.0-11.7)
[2017-01-14 04:40] LABS: HEMATOCRIT 25.3 % (35.0-45.0); HEMOGLOBIN 8.3 gm/dL (12.0-16.0); MEAN CELL VOLUME 86.2 FL (83-96); MEAN CORPUSCULAR HEMOGLOBIN 28.2 PG (28-34); MEAN CORPUSCULAR HGB CONC 32.7 g/dL (30-36); MEAN PLATELET VOLUME 6.5 FL (6.5-11.5); RED BLOOD COUNT 2.94 X10e (3.90-5.30); RED CELL DISTRIBUTION WIDTH 14.9 % (11.0-15.5); WHITE BLOOD COUNT 11.6 X10e3 (4.0-10.5)
[2017-01-14 05:03] LABS: BUN/CREATININE RATIO 23.33; CALCIUM SERUM 8.7 mg/dL (8.4-10.2); CREATININE SERUM 0.6 mg/dL (0.6-1.4); POTASSIUM 4.4 mmol/L (3.5-5.1)
[2017-01-15 06:20] LABS: BASOPHIL# 0.1 X10e3 (0-0.3); BASOPHIL% 0.9 % (0-2.5); EOSINOPHIL# 0.1 X10e3 (0-0.7); EOSINOPHIL% 0.6 % (0.0-7.0); HEMATOCRIT 25.8 % (35.0-45.0); HEMOGLOBIN 8.2 gm/dL (12.0-16.0); LYMPHOCYTE# 3.3 X10e3 (1.0-3.5); LYMPHOCYTE% 29.1 % (17.0-45.0); MEAN CELL VOLUME 86.5 FL (83-96); MEAN CORPUSCULAR HEMOGLOBIN 27.5 PG (28-34); MEAN CORPUSCULAR HGB CONC 31.8 g/dL (30-36); MEAN PLATELET VOLUME 6.4 FL (6.5-11.5); MONOCYTE# 0.7 X10e3 (0-1.0); MONOCYTE% 6.6 % (3.0-12.0); NEUTROPHIL# 7.1 X10e3 (1.5-7.1); NEUTROPHIL% 62.8 % (40-75); PLATELET COUNT 705 X10e3 (140-420); RED BLOOD COUNT 2.98 X10e (3.90-5.30); RED CELL DISTRIBUTION WIDTH 14.7 % (11.0-15.5); WHITE BLOOD COUNT 11.3 X10e3 (4.0-10.5)
[2017-01-15 06:23] LABS: DIFF IND NO
[2017-01-15 07:09] LABS: CALCIUM SERUM 8.9 mg/dL (8.4-10.2); CREATININE SERUM 0.6 mg/dL (0.6-1.4); MAGNESIUM 1.8 mg/dL (1.6-3.0); POTASSIUM 4.7 mmol/L (3.5-5.1)
[2017-01-15 10:52] LABS: BODY FLUID APPEARANCE HAZY; BODY FLUID SOURCE ASCITES
[2017-01-16 07:34] LABS: BUN/CREATININE RATIO 13.75; CALCIUM SERUM 8.7 mg/dL (8.4-10.2); CREATININE SERUM 0.8 mg/dL (0.6-1.4); GLOM FILT RATE Estimated 100.4 mL/min (>60); MAGNESIUM 1.8 mg/dL (1.6-3.0); POTASSIUM 4.2 mmol/L (3.5-5.1)
[2017-01-18 06:24] LABS: MAGNESIUM 1.7 mg/dL (1.6-3.0); POTASSIUM 3.9 mmol/L (3.5-5.1)
[2017-01-19 06:24] LABS: CALCIUM SERUM 8.9 mg/dL (8.4-10.2); CREATININE SERUM 0.6 mg/dL (0.6-1.4); MAGNESIUM 1.8 mg/dL (1.6-3.0); POTASSIUM 4.8 mmol/L (3.5-5.1)
[2017-01-20 00:20] LABS: AMPHETAMINE NEG (NEG); BARBITURATES NEG (NEG); BENZODIAZEPINES NEG (NEG); COCAINE NEG (NEG); MARIJUANA NEG (NEG); OPIATES POS (NEG); TRICYCLIC ANTIDEPRESSANTS NEG (NEG); U METHADONE NEG (NEG)
[2017-01-20 06:20] LABS: HEMATOCRIT 25.7 % (35.0-45.0); HEMOGLOBIN 8.3 gm/dL (12.0-16.0); MEAN CELL VOLUME 84.8 FL (83-96); MEAN CORPUSCULAR HEMOGLOBIN 27.5 PG (28-34); MEAN CORPUSCULAR HGB CONC 32.4 g/dL (30-36); MEAN PLATELET VOLUME 6.6 FL (6.5-11.5); RED BLOOD COUNT 3.03 X10e (3.90-5.30); RED CELL DISTRIBUTION WIDTH 14.4 % (11.0-15.5); WHITE BLOOD COUNT 8.7 X10e3 (4.0-10.5)
[2017-01-20 07:20] LABS: BUN/CREATININE RATIO 16.25; CREATININE SERUM 0.8 mg/dL (0.6-1.4); GLOM FILT RATE Estimated 100.4 mL/min (>60); MAGNESIUM 1.9 mg/dL (1.6-3.0); POTASSIUM 4.1 mmol/L (3.5-5.1)
[2017-01-21 03:54] LABS: BUN/CREATININE RATIO 14.28; CALCIUM SERUM 8.6 mg/dL (8.4-10.2); CREATININE SERUM 0.7 mg/dL (0.6-1.4); GLOM FILT RATE Estimated 117.9 mL/min (>60); MAGNESIUM 1.9 mg/dL (1.6-3.0)
[2017-01-22 04:40] LABS: BUN/CREATININE RATIO 16.25; CALCIUM SERUM 8.7 mg/dL (8.4-10.2); CREATININE SERUM 0.8 mg/dL (0.6-1.4); GLOM FILT RATE Estimated 100.4 mL/min (>60); MAGNESIUM 1.9 mg/dL (1.6-3.0); POTASSIUM 4.1 mmol/L (3.5-5.1)
[2017-01-23 10:48] LABS: BUN/CREATININE RATIO 14.28; CALCIUM SERUM 8.7 mg/dL (8.4-10.2); CREATININE SERUM 0.7 mg/dL (0.6-1.4); GLOM FILT RATE Estimated 117.9 mL/min (>60); MAGNESIUM 1.7 mg/dL (1.6-3.0); POTASSIUM 3.8 mmol/L (3.5-5.1)
[2017-01-25 06:58] LABS: CALCIUM SERUM 8.8 mg/dL (8.4-10.2); CREATININE SERUM 0.8 mg/dL (0.6-1.4); GLOM FILT RATE Estimated 100.4 mL/min (>60); MAGNESIUM 1.7 mg/dL (1.6-3.0); POTASSIUM 4.2 mmol/L (3.5-5.1)
[2017-01-27 05:14] LABS: HEMATOCRIT 27.6 % (35.0-45.0); HEMOGLOBIN 8.9 gm/dL (12.0-16.0); MEAN CELL VOLUME 83.8 FL (83-96); MEAN CORPUSCULAR HEMOGLOBIN 26.9 PG (28-34); MEAN CORPUSCULAR HGB CONC 32.1 g/dL (30-36); MEAN PLATELET VOLUME 6.4 FL (6.5-11.5); RED BLOOD COUNT 3.3 X10e (3.90-5.30); RED CELL DISTRIBUTION WIDTH 15.1 % (11.0-15.5); WHITE BLOOD COUNT 9.7 X10e3 (4.0-10.5)
[2017-01-27 05:38] LABS: BUN/CREATININE RATIO 18.57; CALCIUM SERUM 8.8 mg/dL (8.4-10.2); CREATININE SERUM 0.7 mg/dL (0.6-1.4); GLOM FILT RATE Estimated 117.9 mL/min (>60); MAGNESIUM 1.9 mg/dL (1.6-3.0); POTASSIUM 3.9 mmol/L (3.5-5.1)
[2017-01-28 03:19] LABS: MAGNESIUM 1.9 mg/dL (1.6-3.0); POTASSIUM 4.2 mmol/L (3.5-5.1)
[2017-01-29 11:25] LABS: MAGNESIUM 1.6 mg/dL (1.6-3.0); POTASSIUM 3.9 mmol/L (3.5-5.1)
[2017-01-30 05:54] LABS: HEMATOCRIT 30.9 % (35.0-45.0); HEMOGLOBIN 9.8 gm/dL (12.0-16.0); MEAN CELL VOLUME 84.9 FL (83-96); MEAN CORPUSCULAR HGB CONC 31.8 g/dL (30-36); MEAN PLATELET VOLUME 6.2 FL (6.5-11.5); RED BLOOD COUNT 3.64 X10e (3.90-5.30); RED CELL DISTRIBUTION WIDTH 15.4 % (11.0-15.5); WHITE BLOOD COUNT 8.1 X10e3 (4.0-10.5)
[2017-01-30 06:43] LABS: BUN/CREATININE RATIO 16.25; CREATININE SERUM 0.8 mg/dL (0.6-1.4); GLOM FILT RATE Estimated 100.4 mL/min (>60); POTASSIUM 4.2 mmol/L (3.5-5.1)
[2017-01-31 08:48] LABS: MAGNESIUM 1.7 mg/dL (1.6-3.0); POTASSIUM 3.7 mmol/L (3.5-5.1)
[2017-02-01 09:12] LABS: MAGNESIUM 1.7 mg/dL (1.6-3.0); POTASSIUM 3.9 mmol/L (3.5-5.1)
[2017-02-02 06:49] LABS: BUN/CREATININE RATIO 15.55; CREATININE SERUM 0.9 mg/dL (0.6-1.4); GLOM FILT RATE Estimated 87.1 mL/min (>60); POTASSIUM 4.1 mmol/L (3.5-5.1)
[2017-02-03 06:50] LABS: CALCIUM SERUM 9.1 mg/dL (8.4-10.2); CREATININE SERUM 0.8 mg/dL (0.6-1.4); GLOM FILT RATE Estimated 100.4 mL/min (>60); POTASSIUM 3.9 mmol/L (3.5-5.1)
[2017-02-04 06:42] LABS: CREATININE SERUM 0.7 mg/dL (0.6-1.4); GLOM FILT RATE Estimated 117.9 mL/min (>60); POTASSIUM 3.8 mmol/L (3.5-5.1)
[2017-02-05 00:57] LABS: AMPHETAMINE NEG (NEG); BARBITURATES NEG (NEG); BENZODIAZEPINES NEG (NEG); COCAINE NEG (NEG); MARIJUANA NEG (NEG); OPIATES POS (NEG); TRICYCLIC ANTIDEPRESSANTS NEG (NEG); U METHADONE NEG (NEG)
[2017-02-06 07:32] LABS: BUN/CREATININE RATIO 16.25; CREATININE SERUM 0.8 mg/dL (0.6-1.4); GLOM FILT RATE Estimated 100.4 mL/min (>60); POTASSIUM 3.9 mmol/L (3.5-5.1)
== END 2017-02-07 12:34 | DRG 853 ==
LOC: CED 17:52 → CICCU3 22:30 → C2A 22:30 → CEDOF 22:30 → C5B 22:30 → CED 22:30 → C3A PCU 01-04 03:04 → CEDOF 01-04 03:04 → CICCU3 01-04 12:40 → CICCU2 01-04 20:02 → CICCU3 01-05 03:18 → C5B 01-06 12:19 → C4C 01-27 18:38 → C2A 01-29 07:40
PROVIDERS: Emergency Medicine; Family Medicine; Internal Medicine; Internal Medicine Nephrology; Internal Medicine Pulmonary Disease; Nurse Practitioner; Nurse Practitioner Family; Orthopaedic Surgery; Surgery
PROC: 0W9930Z Drainage of Right Pleural Cavity with Drainage Device, Percutaneous Approach (ICD-10-PCS; 2017-01-04)
PROC: 0JB90ZZ Excision of Buttock Subcutaneous Tissue and Fascia, Open Approach (ICD-10-PCS; principal; 2017-01-05 14:00)
PROC: B24BZZ4 Ultrasonography of Heart with Aorta, Transesophageal (ICD-10-PCS; 2017-01-06)
PROC: 0J9Q0ZZ Drainage of Right Foot Subcutaneous Tissue and Fascia, Open Approach (ICD-10-PCS; 2017-01-08)
PROC: 0J9D0ZZ Drainage of Right Upper Arm Subcutaneous Tissue and Fascia, Open Approach (ICD-10-PCS; 2017-01-08 12:30)
PROC: 0H9LXZX Drainage of Left Lower Leg Skin, External Approach, Diagnostic (ICD-10-PCS; 2017-01-13)
PROC: 0RBJ4ZZ Excision of Right Shoulder Joint, Percutaneous Endoscopic Approach (ICD-10-PCS; 2017-01-15)
PROC: 0MB14ZZ Excision of Right Shoulder Bursa and Ligament, Percutaneous Endoscopic Approach (ICD-10-PCS; 2017-01-15)
PROC: 0R9J3ZZ Drainage of Right Shoulder Joint, Percutaneous Approach (ICD-10-PCS; 2017-01-15)
PROC: 02HV33Z Insertion of Infusion Device into Superior Vena Cava, Percutaneous Approach (ICD-10-PCS; 2017-01-21)
PROC: B548ZZA Ultrasonography of Superior Vena Cava, Guidance (ICD-10-PCS; 2017-01-21)
PROC: B24BZZZ Ultrasonography of Heart with Aorta (ICD-10-PCS; 2017-01-25)
PROC: B24BZZZ Ultrasonography of Heart with Aorta (ICD-10-PCS; 2017-02-05)
DX: A41.02 Sepsis due to Methicillin resistant Staphylococcus aureus (principal); I33.0 Acute and subacute infective endocarditis; J86.9 Pyothorax without fistula; I76 Septic arterial embolism; J90 Pleural effusion, not elsewhere classified; F11.20 Opioid dependence, uncomplicated; E87.1 Hypo-osmolality and hyponatremia; L02.611 Cutaneous abscess of right foot; L02.413 Cutaneous abscess of right upper limb; L03.317 Cellulitis of buttock; L02.31 Cutaneous abscess of buttock; N39.0 Urinary tract infection, site not specified; F15.20 Other stimulant dependence, uncomplicated; F33.2 Major depressive disorder, recurrent severe without psychotic features; N17.9 Acute kidney failure, unspecified; J94.8 Other specified pleural conditions; L02.416 Cutaneous abscess of left lower limb; I47.2 Ventricular tachycardia; B95.62 Methicillin resistant Staphylococcus aureus infection as the cause of diseases classified elsewhere; M71.111 Other infective bursitis, right shoulder; S46.811A Strain of other muscles, fascia and tendons at shoulder and upper arm level, right arm, initial encounter; X58.XXXA Exposure to other specified factors, initial encounter; Z86.19 Personal history of other infectious and parasitic diseases; F17.210 Nicotine dependence, cigarettes, uncomplicated; F41.9 Anxiety disorder, unspecified; L73.9 Follicular disorder, unspecified; Z59.0 Homelessness; R80.9 Proteinuria, unspecified; E87.6 Hypokalemia; D64.9 Anemia, unspecified; E83.42 Hypomagnesemia; Z91.19 Patient's noncompliance with other medical treatment and regimen
CPT/HCPCS: 36415; 36600; 71010; 71020; 71250; 72193; 73223; 73701; 76881; 76882; 76937; 76942; 77001; 80048; 80053; 80076; 80202; 80307; 81003; 82550; 82570; 82652; 82728; 82803; 82947; 83540; 83550; 83605; 83615; 83735; 83880; 83935; 84100; 84132; 84156; 84157; 84300; 84484; 84550; 84703; 85025; 85027; 85610; 85730; 86160; 87040; 87070; 87075; 87077; 87086; 87088; 87186; 87205; 87806; 89051; 93306; 93312; 94760; 94762; 97110; 97116; 97163; 97164; 97167; 97530; 97535; 99285; A9577; C1751; J0610; J0878; J1650; J1940; J2250; J2270; J2310; J2405; J2543; J2916; J2997; J3010; J3370; J3475; Q9967